=== PATIENT | female | born 1960 | race Caucasian/White ===

== ENCOUNTER 2016-04-29 18:51 | Emergency (ER) | payer BC ==
[2016-04-29 21:04] VITALS: BP 122/77
--- NOTE | 2016-04-29 21:09 | UC ---
Complaint Female HPI - HPI Summary HPI Summary: right flank pain---history of kidney stones 25 years ago--no fevers chills nausea vomiting urgency or frequency with urination - History Of Current Complaint Chief Complaint: UCGU Stated Complaint: URINARY Time Seen by Provider: 04/29/16 21:01 Hx Obtained From: Patient Hx Last Menstrual Period: 2 months ago ?: No Onset/Duration: Sudden Onset, Lasting Days - 2, Still Present Timing: Constant Severity Initially: Mild Severity Currently: Mild Pain Intensity: 5 Pain Scale Used: 0-10 Numeric Character: Colicy Aggravating Factor(s): Nothing Associated Signs And Symptoms: Positive: Back Pain - right flank. Negative: Fever, Vaginal Bleeding/Discharge, Vaginal Discharge, Nausea, Vomiting(# Of Episodes =), Genital Swelling, Genital Blisters, Retained Foregin Body (Specify) - Allergies/Home Medications Allergies/Adverse Reactions: Allergies Allergy/AdvReac Type Severity Reaction Status Date / Time Phenytoin [From Dilantin] Allergy Intermediate Hives Verified 04/29/16 20:58 Home Medications: Home Medications Multiple Vitamin [Multivitamins] 1 cap PO DAILY 04/29/16 [History Confirmed 01/03] PMH/Surg Hx/FS Hx/Imm Hx Previously Healthy: No Endocrine History Of: Denies: Diabetes, Thyroid Disease Cardiovascular History Of: Reports: Cardiac Disorders - MITRAL VALVE PROLAPSE Denies: Hypertension Respiratory History Of: Denies: COPD, Asthma GI/ History Of: Reports: Kidney Stones Denies: Ulcer - Surgical History Surgical History: Yes Surgery Procedure, Year, and Place: LIVER RESECTION 70% FOR A HEMANGIOMA. C section - Family History Known Family History: Positive: Hypertension - Social History Occupation: Employed Full-time - day care Lives: With Family Alcohol Use: Rare Substance Use Type: None Smoking Status (MU): Light Every Day Tobacco Smoker Type: Cigarettes Amount Used/How Often: 5-6 cigarettes daily Review of Systems Constitutional: Negative Skin: Negative Eyes: Negative ENT: Negative Respiratory: Negative Cardiovascular: Negative Gastrointestinal: Negative Genitourinary: Hematuria Motor: Negative Neurovascular: Negative Musculoskeletal: Negative Neurological: Negative Psychological: Negative All Other Systems Reviewed And Are Negative: Yes Physical Exam Triage Information Reviewed: Yes Appearance: Well-Appearing, No Pain Distress, Well-Nourished Vital Signs: Initial Vital Signs Temp 98.4 F 04/29/16 20:59 Pulse 70 04/29/16 20:59 Resp 18 04/29/16 20:59 BP 122/77 04/29/16 20:59 Pulse Ox 99 04/29/16 20:59 Vital Signs Reviewed: Yes Eye Exam: Normal Eyes: Positive: Conjunctiva Clear ENT Exam: Normal ENT: Positive: Normal ENT inspection, Hearing grossly normal, Pharynx normal, TMs normal. Negative: Nasal congestion, Nasal drainage, Tonsillar swelling, Tonsillar exudate, Trismus, Muffled/hoarse voice Dental Exam: Normal Neck exam: Normal Neck: Positive: Supple, Nontender, No Lymphadenopathy Respiratory Exam: Normal Respiratory: Positive: Chest non-tender, No respiratory distress, No accessory muscle use Cardiovascular Exam: Normal Cardiovascular: Positive: RRR, No Murmur, Pulses Normal, Brisk Capillary Refill Abdominal Exam: Other Abdomen Description: Positive: No Organomegaly, Soft, CVA Tenderness (R). Negative: Distended, Guarding Bowel Sounds: Positive: Present, Absent Musculoskeletal Exam: Normal Musculoskeletal: Positive: Strength Intact, ROM Intact, No Edema Neurological Exam: Normal Neurological: Positive: Alert Psychological Exam: Normal Skin Exam: Normal Diagnostics - Laboratory Diagnostic Studies Completed/Ordered: kub--no evidencee of renal stone Complaint Female Dx - Course Course Of Treatment: strain urine, bactrim, increase fluids, follow with pcp/ urology on Monday to ed for increase pain, fever, chills, nausea, vomiting decrease urine output - Differential Dx/Diagnosis Differential Diagnosis/HQI/PQRI: Renal Colic, Sexually Transmitted Disease, Ureteral Stone, Urinary Tract Infection Provider Diagnoses: Hematuria, right flank pain, uti Discharge - Discharge Plan Condition: Stable Disposition: HOME Prescriptions: Ibuprofen TAB* [Motrin TAB* 600 MG] 600 mg PO Q6H PRN #40 tab PRN Reason: pain Sulfamethox/Trimethoprim DS* [Bactrim DS 800/160 TAB*] 1 tab PO BID #19 tab Patient Education Materials: Urinary Tract Infection in Women (ED), Renal Colic (ED), Hematuria (ED) Referrals: Inocencia Rios MD [Medical Doctor] - 3 Days Gabo Chan MD [Primary Care Provider] - Víctor Sanz MD [Medical Doctor] - 3 Days ()
[2016-04-29] MEDS ORDERED: Sulfamethox/Trimethoprim DS 800/160* TAB PO ONE (21:42)
--- NOTE | 2016-04-29 22:20 | RAD ---
HISTORY: Flank pain COMPARISONS: None VIEWS: Frontal views of the abdomen. FINDINGS: BOWEL: There is a nonspecific bowel gas pattern, with nondilated small bowel gas noted. There is a large amount of stool within the colon. CALCULI: Vascular calcifications are noted in the pelvis. There are no appreciable calculi attributable to the renal collecting system, though evaluation is limited by overlying bowel BONES AND SOFT TISSUES: There are no osseous abnormalities. OTHER FINDINGS: The lung bases are clear. There is no subphrenic gas. IMPRESSION: NONOBSTRUCTIVE BOWEL GAS PATTERN. LARGE AMOUNT OF STOOL WITHIN THE COLON.
== END 2016-04-29 22:33 | disposition home or self-care (01) ==
LOC: UCCORT 18:51
DX: N39.0 Urinary tract infection, site not specified (principal); R31.9 Hematuria, unspecified; I34.1 Nonrheumatic mitral (valve) prolapse; F17.210 Nicotine dependence, cigarettes, uncomplicated; Z88.5 Allergy status to narcotic agent
CPT/HCPCS: 74000; 87086; 99212; A9270-GY; G0463

== ENCOUNTER 2016-05-06 17:47 | Emergency (ER) | payer BC ==
[2016-05-06 20:20] LABS: Urine Bacteria Absent (Absent); Urine Bilirubin Negative (Negative); Urine Glucose Negative (Negative); Urine Nitrite Negative (Negative)
--- NOTE | 2016-05-06 22:04 | ED ---
GI/ HPI - HPI Summary HPI Summary: 55 female presents with complaints of blood in urine, flank pain, urinary frequency and urgency that began ~ 1 week ago. Patient states she was seen at [facility] 1 week ago for blood in urine and was treated for a UTI with Bactrim. However, after taking 2 pills of the Bactrim patient states she was called and told to stop taking it due to the culture coming back negative for organisms on 05/01/16. Still experiencing symptoms she went to her PCP who started her on Cipro that she also took 2 pills of. Patient had an US done yesterday 05/05/16 to rule out kidney stones, as she does have a hx, and it was negative. She was told not to take her Cipro the day of her US so she stopped taking that. She took one more pill of Cipro this morning 05/06/16 for a total of 2. Her symptoms have gotten worse since. Today 05/06/16 she complains of fever of 103F, nausea, vomiting and general feeling ill along with her urinary symptoms. Denies difficulty breathing, abdominal pain and chest pain. - History of Current Complaint Chief Complaint: EDUrogenitalProblems Time Seen by Provider: 05/06/16 21:23 Stated Complaint: FEVER,BLOOD IN URINE,VOMITING Hx Obtained From: Patient Onset/Duration: Started Days Ago Timing: Constant Severity: Mild Current Severity: Moderate Pain Intensity: 1 Location of Pain: Flank - right Pain Characteristics: Aching Associated Signs and Symptoms: Positive: Nausea, Vomiting, Fever, Hematuria, Dysuria, Chills, Other: - "feeling ill" Aggravating Factor(s): Urination Alleviating Factor(s): Nothing - Allergy/Home Medications Allergies/Adverse Reactions: Allergies Allergy/AdvReac Type Severity Reaction Status Date / Time Phenytoin [From Dilantin] Allergy Intermediate Hives Verified 04/29/16 20:58 PMH/Surg Hx/FS Hx/Imm Hx Endocrine/Hematology History: Denies: Hx Diabetes, Hx Thyroid Disease Cardiovascular History: Denies: Hx Hypertension Respiratory History: Denies: Hx Asthma, Hx Chronic Obstructive Pulmonary Disease (COPD) GI History: Denies: Hx Ulcer History: Reports: Hx Kidney Stones - Surgical History Surgery Procedure, Year, and Place: LIVER RESECTION 70% FOR A HEMANGIOMA. C section Infectious Disease History: No Infectious Disease History: Denies: Hx Hepatitis, Hx Human Immunodeficiency Virus (HIV), Traveled Outside the [place] in Last 30 Days - Family History Known Family History: Positive: Hypertension - Social History Alcohol Use: Rare Substance Use Type: Reports: None Smoking Status (MU): Light Every Day Tobacco Smoker Type: Cigarettes Amount Used/How Often: 5-6 cigarettes daily Review of Systems Positive: Fever, Chills, Fatigue Eyes: Negative ENT: Negative Cardiovascular: Negative Respiratory: Negative Positive: Vomiting, Nausea Positive: burning, dysuria, flank pain, hematuria, urgency Musculoskeletal: Negative Skin: Negative Neurological: Negative Psychological: Normal All Other Systems Reviewed And Are Negative: Yes Physical Exam Triage Information Reviewed: Yes Vital Signs On Initial Exam: Initial Vitals Temp Pulse Resp BP Pulse Ox 97.6 F 83 18 122/83 99 05/06/16 18:16 05/06/16 18:16 05/06/16 18:16 05/06/16 18:16 05/06/16 18:16 Vital Signs Reviewed: Yes Appearance: Positive: No Pain Distress, Well-Nourished, Ill-Appearing Skin: Positive: Warm, Skin Color Reflects Adequate Perfusion, Dry Head/Face: Positive: Normal Head/Face Inspection Eyes: Positive: Normal, Conjunctiva Clear ENT: Positive: Hearing grossly normal Neck: Positive: Supple, Nontender, No Lymphadenopathy Respiratory/Lung Sounds: Positive: Clear to Auscultation, Breath Sounds Present Cardiovascular: Positive: Normal, RRR, Pulses are Symmetrical in both Upper and Lower Extremities Abdomen Description: Positive: Nontender, No Organomegaly, Soft, CVA Tenderness (R). Negative: Bruit, CVA Tenderness (L), Distended, Guarding, Peritoneal Signs Bowel Sounds: Positive: Present Musculoskeletal: Positive: Normal, Strength/ROM Intact Neurological: Positive: Normal, Sensory/Motor Intact, Alert, Oriented to Person Place, Time Psychiatric: Positive: Normal Diagnostics - Vital Signs Vital Signs Temp Pulse Resp BP Pulse Ox 05/06/16 20:30 97.8 F 78 16 114/84 98 05/06/16 19:40 97.9 F 74 16 123/72 98 05/06/16 18:16 97.6 F 83 18 122/83 99 - Laboratory Lab Results: Lab Results 05/06/16 Range/Units 20:00 Urine Color Franny Urine Appearance Cloudy Urine pH 6.0 (5-9) Ur Specific [place] 1.030 (1.010-1.030) Urine Protein 2+(100 mg/dl) H (Negative) Urine Ketones Trace H (Negative) Urine Blood 3+ H (Negative) Urine Nitrate Negative (Negative) Urine Bilirubin Negative (Negative) Urine Urobilinogen Negative (Negative) Ur Leukocyte Esterase 1+ H (Negative) Urine WBC (Auto) 2+(11-20/hpf) H (Absent) Urine RBC (Auto) 3+(>10/hpf) H (Absent) Ur Squamous Epith Cells Present H (Absent) Urine Bacteria Absent (Absent) Urine Glucose Negative (Negative) Result Diagrams: 05/06/16 22:50 05/06/16 22:50 Lab Statement: Any lab studies that have been ordered have been reviewed, and results considered in the medical decision making process. - CT No standard instances CT Interpretation: Positive (See Comments) - BILATERAL, NONOBSTRUCTIVE RENAL CALCULI. THE DOMINANT CALCULUS IS AT THE LEVEL OF THE LEFT UPJ AND MEASURES [address] Interpretation Completed By: Radiologist Re-Evaluation - Re-Evaluation First Eval Re-Evaluation Time: 23:42 Change: Unchanged - patient is still doing ok. comfortable and declining pain management at this time. GIGU Course/Dx - Course Course Of Treatment: CT of abdomen/pelvis was ordered to rule out calculi smaller that U/S may not have picked up and negative for hydronephrosis. Due to negative urine culture a few days ago and history of kidney stones other etiologies were considered. Urinalysis positive for blood, leukocyte, WBC, RBC, ketones and protein. Given fluids, denied pain medication at this time. CT positive for b/l kidney stones without complication however one sone meausring 6mm in UPJ obstructed and possibly infected due to febrile illness and vomiting. patient is not febrile at this time however did get a temperature of 100.3F at home before taking some ibuprofen. Spoke with Dr Otto and Dr Becker. Patient will be treated with IV Rocephin and per Dr Becker she will be seen in his office Monday. He also asked to get a KUB to have a better idea of kidney stone placement, which was obtained. Patient is aware of worsening symptoms to watch out for understands she should return to ED with worsening symptoms or increased pain over the weekend. Encouraged to take at home Ibuprofen 600mg for pain. Patient refused any other pain medication as she does not like taking it. - Diagnoses Differential Diagnoses - Female: Cystitis, Pyelonephritis, Renal Calculi, Urinary Tract Infection, Ureteral Calculi Provider Diagnoses: Renal calculus, bilateral, UPJ (ureteropelvic junction) obstruction - Physician Notifications Discussed Care Of Patient With: Dr Otto and Dr Becker Time Discussed With Above Provider: 23:15 Instructed by Provider To: Have Pt Call For Appt. - seen in his office monday Discharge - Discharge Plan Condition: Stable Disposition: HOME Patient Education Materials: Kidney Stones (ED) Referrals: Gabo Chan MD [Primary Care Provider] - Regino Becker MD [Medical Doctor] - Additional Instructions: Take Ibuprofen as needed to help with your pain. Drink PLENTY of fluids. Rest. Follow-up with Dr Becker/Urology office is critical by Monday of next week for further evaluation of the stone and additional intervention. If symptoms worsen such as increasing fever, vomiting and intense pain please return to ED in the meantime for management.
[2016-05-06] MEDS ORDERED: NS 0.9% 1000 ML* 1,000 ML IV ONE (22:09)
--- NOTE | 2016-05-06 22:42 | RAD ---
INDICATION: Flank pain and hematuria COMPARISON: None TECHNIQUE: Noncontrast axial source images were acquired from the level hemidiaphragms to the symphysis pubis as part of CT imaging for renal stone. Lung bases: The lung bases are clear. Liver: There is partial hepatic resection. The left lobe appears absent. Noncontrast imaging shows no evidence of a hepatic mass or ductal dilatation. Gallbladder: Cholecystectomy. Spleen: The spleen is normal in size. The noncontrast CT appearance is normal. Pancreas: Noncontrast imaging shows no pancreatic mass or ductal dilitation. Adrenal glands: No masses are identified. Kidneys/Bladder: There are several 2 to 3 mm nonobstructive calculi in the lower pole the right kidney. There are no right ureteral calculi. There is a nonobstructive, 6 mm calculus at the level of the left UPJ. There is a obstructive, 3 mm lower pole left renal calculus. There are no left ureteral calculi. There are multiple phleboliths in the minor pelvis no renal mass is identified on noncontrast evaluation. Adenopathy: There is no evidence of intraperitoneal or retroperitoneal adenopathy. Evaluation is limited without oral contrast. Fluid collections: There are no free or localized fluid collections. Vessels: The aorta and iliac vessels are normal in caliber. There are no significant atherosclerotic changes. The IVC appears normal Pelvic organs: The uterus and adnexa appear normal GI tract: Evaluation of the bowel is limited without oral contrast. The stomach, small bowel, and lower GI tract appear grossly normal. There are no obstructive findings. The appendix is visualized and appears normal. Soft tissues: No soft tissue abnormalities of the extraperitoneal abdomen or pelvis are identified. Osseous structures: There are no acute osseous findings. IMPRESSION: BILATERAL, NONOBSTRUCTIVE RENAL CALCULI. THE DOMINANT CALCULUS IS AT THE LEVEL OF THE LEFT UPJ AND MEASURES 6 MM
[2016-05-06 22:58] LABS: Hematocrit 39 % (35-47); Hemoglobin 13.1 g/dl (12.0-16.0); Mean Corpuscular HGB Conc 33 g/dl (31-36); Mean Corpuscular Hemoglobin 29 pg (27-31); Mean Corpuscular Volume 88 fL (80-97); Mean Platelet Volume 8 um3 (7.4-10.4); Red Blood Count 4.47 10^6/ul (4.0-5.4); Red Cell Distribution Width 14 % (10.5-15); White Blood Count 7.1 10^3/ul (3.5-10.8)
[2016-05-06] MEDS ORDERED: cefTRIAXone(*) 1 GM in NS 0.9% 50 ML* 50 ML IVPB ONE (23:13)
[2016-05-06 23:41] LABS: Albumin 3.8 g/dL (3.2-5.2); C Reactive Protein 24.97 mg/L (< 5.00); EGFR African American 84.4 (>60); EGFR Non-African American 65.6 (>60); Globulin 2.9 g/dL (2-4); Potassium 3.8 mmol/L (3.5-5.0); Total Bilirubin 0.7 mg/dL (0.2-1.0); Total Protein 6.7 g/dL (6.4-8.9)
[2016-05-07 01:35] VITALS: BP 112/72
--- NOTE | 2016-05-07 08:05 | RAD ---
HISTORY: Kidney stone COMPARISONS: CT dated May 06, 2016 VIEWS: Frontal views of the abdomen. FINDINGS: BOWEL: There is a nonspecific bowel gas pattern, with nondilated small bowel gas noted. There is a large amount of stool within the colon. CALCULI: The renal calculi noted on the previous CT examination is not well-visualized on the current examination; however, evaluation is limited by overlying bowel. BONES AND SOFT TISSUES: Mild degenerative changes are noted OTHER FINDINGS: The lung bases are clear. There is no subphrenic gas. IMPRESSION: THE NEPHROLITHIASIS NOTED ON THE PREVIOUS CT EXAMINATION IS NOT WELL-VISUALIZED ON THE CURRENT EXAMINATION; HOWEVER, EVALUATION IS LIMITED BY OVERLYING BOWEL
== END 2016-05-07 01:32 | disposition home or self-care (01) ==
LOC: ED 17:47
DX: N20.0 Calculus of kidney (principal); N13.5 Crossing vessel and stricture of ureter without hydronephrosis; R11.2 Nausea with vomiting, unspecified; R50.9 Fever, unspecified; R31.9 Hematuria, unspecified; R30.0 Dysuria; F17.210 Nicotine dependence, cigarettes, uncomplicated
CPT/HCPCS: 36415; 74000; 74176; 80053; 81003; 81015; 85025; 86140; 87086; 99282; J0696

== ENCOUNTER 2016-05-30 08:15 | Day surgery (SDC) | payer BC ==
--- NOTE | 2016-05-11 10:26 | HP ---
ADMITTING HISTORY AND PHYSICAL: DATE OF ADMISSION: 05/16/16 AGE: 55 years. SEX: Female. SURGEON: Regino Becker MD ADMITTING DIAGNOSES: 1. Left flank pain. 2. Calculus, left ureteropelvic junction. PLANNED PROCEDURES: Shock wave lithotripsy of left renal calculus. ADMITTING HISTORY OF PRESENT ILLNESS: Patricia Santoyo is a 55-year-old lady who had episodic flank pain and presented to the emergency room. A CT scan revealed a 6 to 7 mm calculus at the left ureteropelvic junction without any hydronephrosis. She continues to have intermittent pain and is being brought in for shock wave lithotripsy for treatment of the calculus. Since there is no hydronephrosis, I am not planning to place a stent at the time of lithotripsy. PAST MEDICAL HISTORY: Significant for gastroesophageal reflux and a large hepatic hemangioma requiring resection of 70% of the liver in 2000. PAST SURGICAL HISTORY: Significant for partial hepatectomy in 2000 and C- section. MEDICATIONS: On admission: 1. Rabeprazole 20 mg twice a day. 2. Multivitamin. ALLERGIES: DILANTIN and HIBICLENS. SMOKING HISTORY: She has a 10-15 pack year smoking history. FAMILY HISTORY: Her father has kidney stones. PHYSICAL EXAMINATION GENERAL: Reveals a pleasant middle-aged lady, who is currently not in any acute pain. VITAL SIGNS: Blood pressure is 128/84; and pulse 68 per minute, oxygen saturation 97% on room air. LUNGS: Clear bilaterally. CARDIOVASCULAR EXAM: Regular rate and rhythm. S1, S2. ABDOMEN: Soft with mild left flank tenderness. IMPRESSION AND PLAN: A 55-year-old lady with a nonobstructing 6 mm to 7 mm calculus of the left ureteropelvic junction. I have discussed the procedure of shock wave lithotripsy including possible risks of bleeding, infection, incomplete fragmentation, and she appears to understand and wishes to proceed as planned. I have also discussed alternative option of waiting to see whether the stone were migrate distally into the ureter but she would like to avoid having to deal with obstruction and potential stents and would like to proceed with the lithotripsy instead. CC: Gabo Chan MD; Dr. Becker* [id number]/[facility] #: [id number] [facility]
[~2016-05-30 08:15] MED LIST: Buffered Lidocaine 1% SYR 3ML* 3 ML/SYR SYRINGE INTRADERM ONE; Famotidine IV* 10 MG/ML 2 ML (20 mg) IV ONE; Metoclopramide TAB* 10 MG PO ONE
[2016-05-30] MEDS ORDERED: Metoclopramide TAB* 10 MG ONE (08:22)
[2016-05-30] MEDS ORDERED: Levofloxacin 500 MG IVPREMIX(* 500 MG/100 ML BAG IVPB ONE (08:22)
[2016-05-30] MEDS ORDERED: Famotidine IV* 10 MG/ML 2 ML (20 mg) ONE (08:22)
--- NOTE | 2016-05-30 08:52 | RAD ---
Indication: Lithotripsy. Left renal calculus. Single view of the abdomen demonstrates calculi overlying the lower pole left kidney. This measures approximately 6 mm. When compared to previous exam of May 10, 2016 this appears more conspicuous. IMPRESSION: Calcification overlying the lower pole of left kidney measuring up to 6 mm.
[2016-05-30] MEDS ORDERED: Dexamethasone IV* 4 MG/ML 1 ML (4 MG) ONE (09:29)
[2016-05-30] MEDS ORDERED: fentaNYL* 50 MCG/ML 2 ML VIAL (100 MCG VIAL) ONE ×2 (09:29→11:27)
[2016-05-30] MEDS ORDERED: Lidocaine 2% PF * 5 ML VIAL ONE (09:29)
[2016-05-30] MEDS ORDERED: Midazolam* 1 MG/ML 5 ML VIAL (5 MG) ONE (09:29)
[2016-05-30] MEDS ORDERED: Propofol* 10 MG/ML 20 ML BTL IV PUSH ONE ×2 (09:29→11:15)
[2016-05-30] MEDS ORDERED: Ketorolac INJ* 30 MG/ML 1 ML VIAL ONE (09:29)
[2016-05-30] MEDS ORDERED: Ondansetron INJ* 2 MG/ML VIAL ONE (09:29)
[2016-05-30] MEDS ORDERED: KETAMINE HCL* 50 MG/ML 10 ML VIAL ONE (09:29)
[2016-05-30] MEDS ORDERED: Ondansetron INJ* 2 MG/ML VIAL IV PRN (10:55)
[2016-05-30] MEDS ORDERED: fentaNYL* 50 MCG/ML 2 ML VIAL (100 MCG VIAL) IV PRN (10:55)
[2016-05-30] MEDS ORDERED: oxyCODONE/Acetamin 5/325 MG* TAB PO PRN (10:55)
[2016-05-30] MEDS ORDERED: HYDROmorphone INJ* 1 MG/ML CARPUJECT SYRINGE IV PRN (10:55)
[2016-05-30 12:46] VITALS: BP 123/73
--- NOTE | 2016-05-31 03:22 | OP ---
DATE OF OPERATION: 05/30/16 - [facility] DATE OF : 58 - AGE/SEX: 55 years, female. SURGEON: Regino Becker MD ANESTHESIOLOGIST: Dr. Mikie Otero. ANESTHESIA: Intravenous sedation. PRE-OP DIAGNOSIS: Left renal calculus. POST-OP DIAGNOSIS: Left renal calculus. OPERATIVE PROCEDURE: Shockwave lithotripsy of left renal calculus. COMPLICATIONS: None. POSTOPERATIVE CONDITION: Stable. INDICATIONS: Patricia Santoyo is a 55-year-old lady who has had episodic left flank pain secondary to a left renal calculus. I have discussed the procedure of lithotripsy including possible risks of bleeding, infection, incomplete fragmentation, and possible injury to the kidney. She appears to understand and wishes to proceed as planned with the lithotripsy. DESCRIPTION OF PROCEDURE: After induction of intravenous sedation, the patient was placed on the lithotripsy table in a supine position. The calculus, which now appeared to be in the lower pole of the kidney (had been in the area of the renal pelvis earlier) was localized using fluoroscopy and shockwave lithotripsy was commenced. After the initial 300 shocks, there was a pause in lithotripsy for several minutes in an effort to minimize any potential trauma to the kidney. Lithotripsy was then resumed and a total of 2400 shocks were administered. The patient tolerated the procedure satisfactorily, and was transferred back to the recovery area in stable condition. [id number]/[facility] #: [id number] MTDD
== END 2016-05-30 13:10 | disposition home or self-care (01) ==
LOC: OR 08:15
PROVIDERS: ATTEND Urology
DX: N20.0 Calculus of kidney (principal); I34.1 Nonrheumatic mitral (valve) prolapse; R00.0 Tachycardia, unspecified; R55 Syncope and collapse
CPT/HCPCS: 74000; A9270-GY; J1100; J1885; J1956; J2250; J2405; J2704; J3010

== ENCOUNTER 2016-07-20 10:02 | Day surgery (SDC) | payer BC ==
[2016-07-20] MEDS ORDERED: fentaNYL* 50 MCG/ML 2 ML VIAL (100 MCG VIAL) ONE ×2 (11:38→13:21)
[2016-07-20] MEDS ORDERED: Midazolam* 1 MG/ML 5 ML VIAL (5 MG) ONE (11:38)
[2016-07-20] MEDS ORDERED: cefTRIAXone(*) 2 GM ADDV.VIAL IVPB ONE (12:50)
[2016-07-20] MEDS ORDERED: Levofloxacin 500 MG IVPREMIX(* 500 MG/100 ML BAG IVPB ONE (12:55)
[2016-07-20] MEDS ORDERED: Iohexol 180 (CONTRAST) 10 ML SDV IV ONE (13:03)
[2016-07-20] MEDS ORDERED: Ketorolac INJ* 30 MG/ML 1 ML VIAL ONE (13:13)
[2016-07-20] MEDS ORDERED: Propofol* 10 MG/ML 20 ML BTL IV PUSH ONE (13:13)
[2016-07-20] MEDS ORDERED: Ondansetron INJ* 2 MG/ML VIAL ONE (13:13)
[2016-07-20] MEDS ORDERED: Dexamethasone IV* 4 MG/ML 1 ML (4 MG) ONE (13:13)
[2016-07-20] MEDS ORDERED: Lidocaine 2% PF * 5 ML VIAL ONE (13:13)
[2016-07-20] MEDS ORDERED: DiMENhydriNATE IV* 50 MG/ML VIAL ONE (13:13)
[2016-07-20] MEDS ORDERED: HYDROmorphone* 1 MG/ML 1 ML SYR IV PRN (14:00)
[2016-07-20] MEDS ORDERED: oxyCODONE TAB* 5 MG TAB PO PRN (14:00)
[2016-07-20] MEDS ORDERED: DiMENhydriNATE IV* 50 MG/ML VIAL IV PUSH PRN (14:00)
[2016-07-20] MEDS ORDERED: Acetaminophen TAB* 325 MG PO PRN (14:00)
--- NOTE | 2016-07-20 14:16 | RAD ---
INDICATION: Left stent insertion. COMPARISON: Correlation is made with a prior CT of the abdomen and pelvis from May 06, 2016 and a prior KUB series from June 09, 2016. TECHNIQUE: 14 seconds of intermittent fluoroscopic guidance were provided and 7 spot films of the abdomen were centered on the left side. FINDINGS: There is partial opacification of the left renal collecting system. Subsequently there is placement of a double-J stent catheter on the left side which demonstrates normal course. IMPRESSION: INTRAOPERATIVE CONTROL FILMS. CPT II Codes: 6045F
[2016-07-20] MEDS ORDERED: CMC:Solifenacin(NF) 5 MG TAB PO ONE (15:00)
[2016-07-20 15:51] VITALS: BP 125/69
--- NOTE | 2016-07-20 16:17 | RAD ---
INDICATION: Status post stent insertion left side. COMPARISON: Comparison is made to prior CT of the abdomen and pelvis from May 06, 2016 and a prior KUB series from June 09, 2016. TECHNIQUE: Frontal supine films of the abdomen were obtained. FINDINGS: The small bowel and colon appear nondistended. There are multiple surgical clips in the right upper quadrant most consistent with a prior cholecystectomy. There is a double-J stent catheter present on the left side which demonstrates normal course. There are several calcific densities which project over the left kidney most consistent with calculi. IMPRESSION: LEFT RENAL CALCULI, STATUS POST DOUBLE-J STENT CATHETER PLACEMENT.
--- NOTE | 2016-07-20 22:39 | OP ---
DATE OF OPERATION: 07/20/16 - [facility] DATE OF : 58 - AGE: 55 years, Female. SURGEON: Regino Becker MD ANESTHESIOLOGIST: Helene uGy MD ANESTHESIA: General. PRE-OP DIAGNOSES: 1. Left hydronephrosis. 2. Obstructing calculus, left proximal ureter. POST-OP DIAGNOSES: 1. Left hydronephrosis. 2. Obstructing calculus, left proximal ureter. 3. Stricture, left ureter. OPERATIVE PROCEDURE: Cystoscopy, left retrograde pyelogram, left ureteral dilatation, left ureteroscopy, and left stent insertion. COMPLICATIONS: None. STENT USED: 7-Danish stent, left ureter. OPERATIVE FINDINGS: 1. Obstructing calculus, left proximal ureter causing left hydronephrosis. 2. Very narrow left mid and distal left ureter (probably congenital narrowing less likely acquired stricture). POSTOPERATIVE CONDITION: Stable. INDICATIONS: Patricia Santoyo is a 55-year-old lady who had undergone lithotripsy of calculus in the left renal pelvis. She had not undergone any stent insertion at that time and now presented with increasing left flank pain and nausea and was noted to have an obstructing calculus in the left proximal ureter. DESCRIPTION OF PROCEDURE: After induction of general anesthesia, the patient was placed in dorsal lithotomy position. Sequential compression devices were in place and functioning. Initial cystoscopy revealed normally located right and left ureteral orifices. There was clear efflux noted from the right orifice and no efflux noted from the left orifice suggesting a complete obstruction. A guidewire was introduced into the left ureter. Retrograde pyelogram revealed left hydronephrosis. A 5-Danish open-ended catheter was introduced for the retrograde pyelogram and was fairly snug, suggesting a narrow ureter. A 6-Danish semi-rigid ureteroscope was introduced and carefully advanced into the distal ureter. The entire ureter was very narrow and I did not want to with forcing the ureteroscope and causing any trauma to the ureter. The ureter was carefully dilated with an 8- Danish dilating catheter and once this was done, a 7-Danish stent was introduced and positioned under fluoroscopy with good proximal and distal positioning obtained. The plan is to repeat an x- ray after the procedure and then to bring her back either for shock wave lithotripsy or for laser lithotripsy depending on the x- ray findings. The patient tolerated the procedure satisfactorily and was transferred back to the recovery area in stable condition. [id number]/[facility] #: [id number] MELANY
== END 2016-07-20 15:51 | disposition home or self-care (01) ==
LOC: OR 10:02
PROVIDERS: ATTEND Urology
DX: N13.2 Hydronephrosis with renal and ureteral calculous obstruction (principal); Q62.10 Congenital occlusion of ureter, unspecified; Z72.0 Tobacco use; I34.1 Nonrheumatic mitral (valve) prolapse; R00.0 Tachycardia, unspecified
CPT/HCPCS: 74000; 74420; C1876; J0696; J1100; J1240; J1580; J1885; J1956; J2250; J2405; J2704; J3010

== ENCOUNTER 2016-10-07 16:46 | Observation (INO) | payer BC ==
[2016-10-07] MEDS ORDERED: Ondansetron INJ* 2 MG/ML VIAL IV ONE (16:52)
[2016-10-07] MEDS ORDERED: Ketorolac INJ* 30 MG/ML 1 ML VIAL IV PUSH ONE (16:52)
[2016-10-07] MEDS ORDERED: NS 0.9% 1000 ML* 1,000 ML IV ONE (16:53)
[2016-10-07 20:02] LABS: Hematocrit 38 % (35-47); Hemoglobin 12.6 g/dl (12.0-16.0); Mean Corpuscular HGB Conc 33 g/dl (31-36); Mean Corpuscular Hemoglobin 30 pg (27-31); Mean Corpuscular Volume 91 fL (80-97); Mean Platelet Volume 8 um3 (7.4-10.4); Red Blood Count 4.23 10^6/ul (4.0-5.4); Red Cell Distribution Width 15 % (10.5-15); White Blood Count 12.1 10^3/ul (3.5-10.8)
--- NOTE | 2016-10-07 20:15 | ED ---
Americo Shook Rebecca, scribed for Patrice Staton MD on 10/07/16 at 1937 . Abdominal Pain/Female - HPI Summary HPI Summary: Pt is a 56 y/o F BIBA who presents to ED c/o L flank pain and nausea. Nausea had been present all day with flank pain beginning at 1300. Pain was in the L flank with radiation to the groin and characterized as burning. Currently, pain is ranked 0/10, though previously it was 10/10. Sx aggravated by nothing, alleviated by Toradol. No sx are present currently. PMHx kidney stones with PSHx "3 surgeries for kidney stones since May" with the last one being a stent removal and lithotripsy in July. - History of Current Complaint Chief Complaint: EDFlankPain Stated Complaint: ABD PAIN Time Seen by Provider: 10/07/16 19:29 Hx Obtained From: Patient Hx Last Menstrual Period: 2 months ago Onset/Duration: Lasting Hours, Resolved Timing: Constant Severity Initially: Severe - 10/10 Severity Currently: None Pain Intensity: 0 Pain Scale Used: 0-10 Numeric Location: Flank - L Radiates: Yes Radiates to: Inguinal Character: Burning Aggravating Factor(s): Nothing Alleviating Factor(s): Medications - Toradol Associated Signs and Symptoms: Positive: Nausea Allergies/Adverse Reactions: Allergies Allergy/AdvReac Type Severity Reaction Status Date / Time Chlorhexidine Allergy Intermediate Swelling Verified 07/25/16 11:31 [From Hibiclens] Phenytoin [From Dilantin] Allergy Intermediate Hives Verified 07/25/16 11:31 Ceftriaxone [From Rocephin] Allergy Hives Verified 07/25/16 11:31 PMH/Surg Hx/FS Hx/Imm Hx Endocrine/Hematology History: Denies: Hx Diabetes, Hx Thyroid Disease Cardiovascular History: Reports: Hx Valvular Heart Disease - MVP Denies: Hx Hypertension, Hx Pacemaker/ICD Respiratory History: Denies: Hx Asthma, Hx Chronic Obstructive Pulmonary Disease (COPD) GI History: Reports: Hx Gastroesophageal Reflux Disease - ON MEDICATION FOR, Other GI Disorders - LIVER RESECTION-2000- FOR HEMANGIOMA Denies: Hx Ulcer History: Reports: Hx Kidney Stones - HX OF AND CURRENTLY Sensory History: Reports: Hx Contacts or Glasses - GLASSES Denies: Hx Hearing Aid Opthamlomology History: Reports: Hx Contacts or Glasses - GLASSES Neurological History: Reports: Hx Headaches - OCCASIONAL- TX WITH IBUPROFEN OR TYLENOL, Hx Migraine - OCCASIONAL- TX WITH IBUPROFEN OR TYLENOL, Hx Seizures - EPILEPSY A CHILD- NO SEIZURE SINCE AGE 15 - Surgical History Surgery Procedure, Year, and Place: LIVER RESECTION 70% FOR A HEMANGIOMA with gall bladder removal 2000. C section 1986. left hand surgery 1997. LITHOTRIPSY. LEFT URETERAL STENT INSERTION- -2016 Hx Anesthesia Reactions: No Infectious Disease History: No Infectious Disease History: Denies: Hx Hepatitis, Hx Human Immunodeficiency Virus (HIV), Traveled Outside the [place] in Last 30 Days - Family History Known Family History: Positive: Hypertension - Social History Alcohol Use: None Substance Use Type: Reports: None Smoking Status (MU): Light Every Day Tobacco Smoker Type: Cigarettes Amount Used/How Often: 1/2 PPD X 1 YEAR Have You Smoked in the Last Year: Yes Review of Systems Positive: Nausea - Resolved Positive: flank pain - L flank with radiation to the groin - resolved All Other Systems Reviewed And Are Negative: Yes Physical Exam Triage Information Reviewed: Yes Vital Signs On Initial Exam: Initial Vitals Temp Pulse Resp BP Pulse Ox 97.2 F 71 20 159/77 97 10/07/16 17:33 10/07/16 17:33 10/07/16 17:33 10/07/16 17:33 10/07/16 17:33 Vital Signs Reviewed: Yes Appearance: Positive: Well-Appearing, Pain Distress - mild discomfort Skin: Positive: Warm Head/Face: Positive: Normal Head/Face Inspection Eyes: Positive: JOSÉ MIGUEL ENT: Positive: Hearing grossly normal Neck: Positive: Supple Respiratory/Lung Sounds: Positive: Clear to Auscultation, Breath Sounds Present Cardiovascular: Positive: RRR Abdomen Description: Positive: Nontender, Soft. Negative: CVA Tenderness (R), CVA Tenderness (L) Bowel Sounds: Positive: Present Musculoskeletal: Positive: Strength/ROM Intact Neurological: Positive: Alert, Oriented to Person Place, Time Psychiatric: Positive: Affect/Mood Appropriate - [place] Coma Scale Coma Scale Total: 15 Diagnostics - Vital Signs Vital Signs Temp Pulse Resp BP Pulse Ox 10/07/16 17:33 97.2 F 71 20 159/77 97 - Laboratory Lab Results: Lab Results 10/07/16 Range/Units 19:50 WBC 12.1 H (3.5-10.8) 10^3/ul RBC 4.23 (4.0-5.4) 10^6/ul Hgb 12.6 (12.0-16.0) g/dl Hct 38 (35-47) % MCV 91 (80-97) fL MCH 30 (27-31) pg MCHC 33 (31-36) g/dl RDW 15 (10.5-15) % Plt Count 247 (150-450) 10^3/ul MPV 8 (7.4-10.4) um3 Neut % (Auto) 85.4 H (38-83) % Lymph % (Auto) 8.7 L (25-47) % Pacific % (Auto) 5.5 (1-9) % Eos % (Auto) 0 (0-6) % Baso % (Auto) 0.4 (0-2) % Absolute Neuts (auto) 10.4 H (1.5-7.7) 10^3/ul Absolute Lymphs (auto) 1.1 (1.0-4.8) 10^3/ul Absolute Monos (auto) 0.7 (0-0.8) 10^3/ul Absolute Eos (auto) 0 (0-0.6) 10^3/ul Absolute Basos (auto) 0 (0-0.2) 10^3/ul Absolute Nucleated RBC 0.01 10^3/ul Nucleated RBC % 0 Result Diagrams: 10/07/16 19:50 10/07/16 19:50 Lab Statement: Any lab studies that have been ordered have been reviewed, and results considered in the medical decision making process. - CT CT Abd/Pel CT Interpretation: Positive (See Comments) CT Interpretation Completed By: Radiologist Re-Evaluation - Re-Evaluation First Eval Re-Evaluation Time: 20:35 Change: Worse Comment: Pain is slightly returning Abdominal Pain Fem Course/Dx - Course Course Of Treatment: Pt is a 56 y/o F BIBA who presents to ED c/o L flank pain and nausea. Nausea had been present all day with flank pain beginning at 1300. Pain was severe L flank pain with radiation to the groin and characterized as burning, though it is now resolved. Sx alleviated by Toradol. No sx are present currently. PMHx kidney stones with PSHx "3 surgeries for kidney stones since May" with the last one being a stent removal and lithotripsy in July. CT Abd/ Pel reveals "1. BILATERAL NEPHROLITHIASIS, INCLUDING A 0.8 CM DISTAL URETERAL CALCULUS ON THE LEFT WITH LEFT-SIDED HYDRONEPHROSIS. 2. FAT-CONTAINING VENTRAL AND UMBILICAL HERNIAS" Discussed care of pt with Dr. Sanz who will see the pt in the ED. Discussed care of pt with Dr. Sanz again, inquiring when the last time she ate was as he will be taking her to the OR. She will be admitted to [facility] with a Dx of renal colic. She understands and agrees. - Diagnoses Provider Diagnoses: Renal colic - Provider Notifications Discussed Care Of Patient With: Víctor Sanz Time Discussed With Above Provider: 20:40 Instructed by Provider To: Admit As Inpatient - Discussed care of pt with Dr. Sanz again at 2043, inquiring when the last time she ate was as he will be taking her to the OR. Discharge - Discharge Plan Condition: Good Disposition: ADMITTED TO [facility] The documentation as recorded by the Americo reyes Rebecca accurately reflects the service I personally performed and the decisions made by me, Patrice Staton MD.
--- NOTE | 2016-10-07 20:17 | RAD ---
CLINICAL HISTORY: Left flank pain COMPARISON: May 06, 2016 TECHNIQUE: Multiple contiguous axial CT scans were obtained of the abdomen and pelvis, without intravenous contrast enhancement. Coronal and sagittal multiplanar reformations are submitted for review. Oral contrast was not administered. FINDINGS: The study is limited by the lack of intravenous contrast. This limits evaluation of the solid organs and vasculature. LUNG BASES: The lung bases are clear. LIVER: The patient appears to be status post resection of the left lobe of the liver BILE DUCTS: There is no intrahepatic or extrahepatic biliary dilatation. GALLBLADDER: The gallbladder is not clearly visualized. PANCREAS: The pancreas is normal, without mass or ductal dilatation. SPLEEN: Normal in size and appearance. UPPER GI TRACT: Evaluation of the gastrointestinal tract is limited by incomplete gastric distention. The upper GI tract is unremarkable. SMALL BOWEL AND MESENTERY: The small bowel is normal in contour, course, and caliber. There is no obstruction or dilatation. COLON: The colon is normal in contour, course, caliber. There is no pericolonic inflammatory change. There is a tubular, vermiform, hollow viscus that is blind ending, and originates from the cecum, consistent with a normal appendix. There is no periappendiceal inflammatory change. This is best seen on axial images 111 through 124. ADRENALS: Normal bilaterally. KIDNEYS: There is a 0.4 cm calyceal stone of the lower pole of left kidney. There are punctate right renal calyceal stones. There is a 0.8 cm calculus of the distal third of the left ureter, just proximal to the left UVJ. There is moderate pelvocaliectasis and hydroureter on the left. BLADDER: The bladder is smooth in contour. PELVIC ORGANS: The uterus and adnexa are grossly normal for technique. AORTA: The aorta is normal. IVC: Unremarkable LYMPH NODES: There is no lymphadenopathy by size criteria. ABDOMINAL WALL: There is a fat-containing supraumbilical ventral hernia. There is a small fat-containing umbilical hernia. BONES AND SOFT TISSUES: Degenerative changes are noted OTHER: None IMPRESSION: 1. BILATERAL NEPHROLITHIASIS, INCLUDING A 0.8 CM DISTAL URETERAL CALCULUS ON THE LEFT WITH LEFT-SIDED HYDRONEPHROSIS. 2. FAT-CONTAINING VENTRAL AND UMBILICAL HERNIAS
[2016-10-07 20:20] LABS: Albumin 3.4 g/dL (3.2-5.2); BUN/Creatinine Ratio 19.4 (8-20); Calcium 8.2 mg/dL (8.6-10.3); EGFR African American 79.9 (>60); EGFR Non-African American 62.1 (>60); Globulin 2.8 g/dL (2-4); Total Bilirubin 0.4 mg/dL (0.2-1.0); Total Protein 6.2 g/dL (6.4-8.9)
[2016-10-07 20:21] LABS: Urine Bacteria Absent (Absent); Urine Bilirubin Negative (Negative); Urine Glucose Negative (Negative); Urine Nitrite Negative (Negative)
[2016-10-07] MEDS ORDERED: Midazolam* 1 MG/ML 5 ML VIAL (5 MG) ONE (21:05)
[2016-10-07] MEDS ORDERED: fentaNYL* 50 MCG/ML 2 ML VIAL (100 MCG VIAL) ONE ×2 (21:05→22:32)
[2016-10-07] MEDS ORDERED: KETAMINE HCL* 50 MG/ML 10 ML VIAL ONE (21:05)
[2016-10-07] MEDS ORDERED: Iohexol 180 (CONTRAST) 10 ML SDV IV ONE (21:25)
[2016-10-07] MEDS ORDERED: Levofloxacin 500 MG IVPREMIX(* 500 MG/100 ML BAG IVPB ONE (22:11)
[2016-10-07] MEDS ORDERED: Dexamethasone IV* 4 MG/ML 1 ML (4 MG) ONE (23:21)
[2016-10-07] MEDS ORDERED: Succinylcholine* 20 MG/ML 10 ML VIAL ONE (23:21)
[2016-10-07] MEDS ORDERED: Lidocaine 2% PF * 5 ML VIAL ONE (23:21)
[2016-10-07] MEDS ORDERED: Ondansetron INJ* 2 MG/ML VIAL ONE (23:21)
[2016-10-07] MEDS ORDERED: Propofol* 10 MG/ML 20 ML BTL IV PUSH ONE (23:21)
[2016-10-07] MEDS ORDERED: PROCHLORPERAZINE INJ 5 MG/ML 2 ML VIAL ONE (23:21)
[2016-10-08] MEDS ORDERED: oxyCODONE/Acetamin 5/325 MG* TAB PO PRN (01:05)
--- NOTE | 2016-10-08 07:01 | RAD ---
INDICATION: Ureteral stent placement. COMPARISON: Comparison is made with a prior CT of the abdomen and pelvis from October 07, 2016. TECHNIQUE: 9 seconds of intermittent fluoroscopic guidance were provided and 5 spot films of the abdomen were centered on the left side. FINDINGS: There is partial opacification of the left renal collecting system. Subsequently there is placement of a double-J stent catheter on the left side which demonstrates normal course. IMPRESSION: INTRAOPERATIVE CONTROL FILMS. CPT II Codes: 6045F
[2016-10-08 07:48] VITALS: BP 129/56
--- NOTE | 2016-10-08 20:18 | OP ---
CC: Dr. Chan * DATE OF OPERATION: 10/07/16 - ROOM #339 DATE OF : 58 SURGEON: Víctor Sanz MD ANESTHESIOLOGIST: Patrice Etienne MD ANESTHESIA: General. PRE-OP DIAGNOSES: 1. Left renal colic. 2. Distal left ureteral calculus. POST-OP DIAGNOSES: 1. Left renal colic. 2. Distal left ureteral calculus. OPERATIVE PROCEDURE: 1. Cystoscopy. 2. Left ureteroscopy and laser lithotripsy of left ureteral calculus. 3. Left retrograde pyelography and placement of left ureteral stent (6-Moroccan). INDICATIONS: Ms. Santoyo is a 56-year-old white female who is a known stone former and who has left renal calculi. She had several endoscopic and shock wave lithotripsies in the last 4 months with the last procedure performed on . She had residual left renal calculi. She presented to the emergency room today with symptoms of left renal colic. She did not have any fever or chills. Her urinalysis showed microscopic hematuria but no signs of infection. There was slight elevation of her white count, but no shift. Non-contrast CT of the abdomen and pelvis showed an 8-mm obstructing calculus in the distal left ureter about 2 cm proximal to the ureterovesical junction. Her vital signs were normal and she was afebrile. Because of the above history and finding and the size of the stone and the recurrent acute pain, the patient is taken to the operating room urgently for the above procedure. PATHOLOGY AT CYSTOSCOPY: The bladder mucosa looked normal. There were no suspicious bladder lesions seen. There was a single ureteral orifice on each side. Clear efflux was noted from the right, no efflux was noted from the left orifice. After placement of the guidewire in the left kidney, there was a hydronephrotic drip of concentrated looking urine. The urine did not look cloudy or infected. Upon left ureteroscopy, there were two calculi noted in the distal ureter. a small calculus measured about 2 to 3 mm and the larger calculus measuring 8 mm. DESCRIPTION OF PROCEDURE: After successful general anesthesia, the patient was placed in the lithotomy position and prepped and draped for cystoscopy. Cystoscopy was then performed and the bladder carefully inspected and the above findings were noted. A flexible-tip guidewire was then introduced into the left orifice and was positioned in the area of the renal pelvis. There was prompt hydronephrotic drip from the left kidney. An open-ended catheter was then positioned in the area of the renal pelvis. The collecting system was then aspirated with syringe and a total of 30 cc of concentrated and slightly bloody urine was evacuated. The specimen was sent for urine culture and sensitivity. After the hydronephrotic drip slowed down, 2 to 3 cc of non-diluted contrast was injected delineating the collecting system. With the guidewire in place, a size 6.5 semirigid ureteroscope was introduced inside the bladder. A flexible-tip basket was then introduced through the port of the ureteroscope and the flexible tip was introduced inside the left ureter and used as a guide to introduce the ureteroscope. There was mild narrowing of the distal ureter; however, it yielded easily to the ureteroscope. Proximal to the partial narrowing of the ureter, the 2 calculi were noted. The smaller calculus was engaged with the basket and was extracted. The larger calculus was engaged in the basket to prevent its proximal migration. A size 550 micron laser fiber was introduced through the other port of the ureteroscope and the stone was broken into multiple fragments. The fragments were then extracted and sent for stone analysis. There was no trauma or injury to the ureteral wall. After final ureteroscopy confirming there were no residual calculi and no ureteral injury, the ureteroscope was removed keeping the guidewire in place. A size 6-Moroccan stent was then fed on top of the guidewire and positioned with the proximal end coiling in renal pelvis and the distal end coiling inside the bladder. There was prompt drainage of contrast from the kidney and no extravasation. The patient tolerated the procedure well and left the operating room in good condition. The plan is to keep the stent in place for 7 to 10 days. It will be removed in the office as an outpatient. [id number]/[facility] #: [id number] MTDD
--- NOTE | 2016-10-09 03:16 | DS ---
CC: Dr. Chan * DISCHARGE SUMMARY: DATE OF ADMISSION: 10/07/16 DATE OF DISCHARGE: 10/08/16 FINAL DIAGNOSES: 1. Left renal colic. 2. Left ureteral calculi. 3. Left renal calculus. OPERATION: 1. Cystoscopy. 2. Left ureteroscopy, laser lithotripsy and left ureteral stent placement on . HISTORY: Mrs. Santoyo is a 56-year-old white female who is a known stone former , who had required several procedures for calculi in her left kidney and left ureter in the last 4 months. The last procedure was performed on 08/04/16 and consisted of shock wave lithotripsy of the left renal calculus. Patient was doing fine until the day of her admission, when she started having symptoms of left renal colic. There was no associated fever or chills. She went to the emergency room where her vital signs were normal. There was slight elevation of her white count. Urine analysis showed blood but no infection. Noncontrast CT of the abdomen and pelvis showed an 8 mm obstructing calculus in the distal left ureter about 2 cm above the ureterovesical junction. There was moderate degree of left hydronephrosis and hydroureter and another calculus was noted in the lower pole calyx of the left kidney. No calculi were seen on the right side. COURSE IN HOSPITAL: Because of the size of the stone and the degree of obstruction and pain, patient was taken urgently to the operating room where she underwent a left ureteroscopy, laser lithotripsy and left ureteral stent placement. All the stone fragments seen in the ureter were extracted. The procedure was uncomplicated. Because the patient lives an hour away from [place] and because she was nauseated and not feeling fully recovered from the procedure and anesthesia, and it was close to midnight, it was decided to keep her overnight for observation. She did well, still feeling tired, but no fever, and complete resolution of her pain. The patient is being discharged home this morning on ibuprofen as needed for pain. Instructions were given for followup and care regarding her stent. She will be seen in the office in 10 days for stent removal. [id number]/[facility] #: [id number] MTDD
== END 2016-10-08 09:55 | disposition home or self-care (01) ==
LOC: ED 16:46 → OR 21:08 → SSU 10-08 00:05
PROVIDERS: ADMIT Urology; ATTEND Urology
DX: N20.2 Calculus of kidney with calculus of ureter (principal); F17.200 Nicotine dependence, unspecified, uncomplicated
CPT/HCPCS: 36415; 74176; 74420; 80053; 81003; 81015; 82365; 83605; 83690; 85025; 87086; 88300; 96374; 96375; 99283; C1876; J0330; J0780; J1100; J1885; J1956; J2250; J2405; J2704; J3010

== ENCOUNTER 2016-12-11 09:57 | Emergency (ER) | payer BC ==
[2016-12-11 10:33] VITALS: BP 129/81
--- NOTE | 2016-12-11 10:44 | UC ---
Throat Pain/Nasal Jignesh HPI - HPI Summary HPI Summary: patient has had 4 weeks of allergy symtpoms that have progressed into sinus and ear pressure, pain around the left eye, she is a smoker. - History of Current Complaint Chief Complaint: UCGeneralIllness Stated Complaint: SINUS/EAR PAIN Time Seen by Provider: 12/11/16 10:27 Hx Obtained From: Patient Hx Last Menstrual Period: LAST WK FOR ONE DAY AFTER NONE FOR 2 YRS. ?: No Onset/Duration: Sudden Onset, Lasting Weeks Severity: Severe Associated Signs & Symptoms: Positive: Wheezing, Hoarseness, Sinus Discomfort, Nasal Discharge - Allergies/Home Medications Allergies/Adverse Reactions: Allergies Allergy/AdvReac Type Severity Reaction Status Date / Time Chlorhexidine Allergy Intermediate Swelling Verified 12/11/16 10:33 [From Hibiclens] Phenytoin [From Dilantin] Allergy Intermediate Hives Verified 12/11/16 10:33 Ceftriaxone [From Rocephin] Allergy Hives Verified 12/11/16 10:33 Home Medications: Home Medications Fluticasone NASAL * [Flonase *] 2 spray BOTH NARES DAILY 12/11/16 [History Confirmed 12/11/16] Ibuprofen TAB* [Advil TAB*] 400 mg PO Q6H PRN 12/11/16 [History Confirmed ] PMH/Surg Hx/FS Hx/Imm Hx Previously Healthy: Yes Other History Of: Negative For: Anticoagulant Therapy - Surgical History Surgical History: Yes Surgery Procedure, Year, and Place: LIVER RESECTION 70% FOR A HEMANGIOMA with gall bladder removal 2000. C section 1986. left hand surgery 1997. LITHOTRIPSY. LEFT URETERAL STENT INSERTION X 2- [facility]-2017. 2 ADDITIONAL SX FOR KIDNEY INFECTIONS--2017 - Family History Known Family History: Positive: Hypertension - Social History Alcohol Use: None Substance Use Type: None Smoking Status (MU): Light Every Day Tobacco Smoker Type: Cigarettes Amount Used/How Often: 1/2 PPD Length of Time of Smoking/Using Tobacco: 1 YR Have You Smoked in the Last Year: Yes When Did the Patient Quit Smoking/Using Tobacco: 20 YRS AGO - Immunization History Most Recent Influenza Vaccination: NO Most Recent Pneumonia Vaccination: refused Review of Systems Constitutional: Negative Skin: Negative Eyes: Negative ENT: Sore Throat, Ear Ache, Nasal Discharge, Sinus Congestion, Sinus Pain/ Tenderness Respiratory: Cough Cardiovascular: Negative Gastrointestinal: Negative Genitourinary: Negative Motor: Negative Neurovascular: Negative Musculoskeletal: Negative Neurological: Headache Psychological: Negative Is Patient Immunocompromised?: No All Other Systems Reviewed And Are Negative: Yes Physical Exam Triage Information Reviewed: Yes Appearance: Well-Nourished, Ill-Appearing, Pain Distress Vital Signs: Initial Vital Signs Temp 97.9 F 12/11/16 10:25 Pulse 65 12/11/16 10:25 Resp 16 12/11/16 10:25 BP 129/81 12/11/16 10:25 Pulse Ox 100 12/11/16 10:25 Eye Exam: Normal Eyes: Positive: Conjunctiva Clear ENT: Positive: Pharyngeal erythema - with exudate, Nasal congestion, Nasal drainage, TM bulging Dental Exam: Normal Neck exam: Normal Neck: Positive: Supple, Nontender, No Lymphadenopathy Respiratory Exam: Normal Respiratory: Positive: Chest non-tender, Normal breath sounds, No respiratory distress, No accessory muscle use, Wheezing, Inspiration Cardiovascular Exam: Normal Cardiovascular: Positive: RRR, No Murmur, Pulses Normal Abdominal Exam: Normal Abdomen Description: Positive: Nontender, No Organomegaly, Soft Bowel Sounds: Positive: Present Musculoskeletal Exam: Normal Musculoskeletal: Positive: Strength Intact, ROM Intact, No Edema Neurological Exam: Normal Neurological: Positive: Alert, Muscle Tone Normal Psychological Exam: Normal Skin Exam: Normal Throat Pain/Nasal Course/Dx - Course Course Of Treatment: hx obtained, exam performed ,meds reviewed, treated for sinusitis and bronchospasm - Differential Dx/Diagnosis Differential Diagnosis/HQI/PQRI: Influenza, Laryngitis, Otitis Media, Pharyngitis, Sinusitis, URI Provider Diagnoses: sinusitis. left serous otitis. bronchospasm. tobacco abuse Discharge - Discharge Plan Condition: Stable Disposition: HOME Patient Education Materials: Sinusitis (ED) Additional Instructions: 1. take the medication as prescribed. 2. Increase fluid intake and use warm compresses to the sinuses to facilitate drainage
== END 2016-12-11 10:48 | disposition home or self-care (01) ==
LOC: UCCORT 09:57
DX: H65.92 Unspecified nonsuppurative otitis media, left ear (principal); J98.01 Acute bronchospasm; J32.9 Chronic sinusitis, unspecified; F17.210 Nicotine dependence, cigarettes, uncomplicated; Z88.8 Allergy status to other drugs, medicaments and biological substances
CPT/HCPCS: 99212; G0463

== ENCOUNTER 2017-05-02 12:40 | Emergency (ER) | payer BC ==
[2017-05-02 15:38] VITALS: BP 134/77
--- NOTE | 2017-05-02 15:58 | UC ---
Throat Pain/Nasal Jignesh HPI - HPI Summary HPI Summary: 56 y/o female with 2 weeks h/o cold symptoms that settled into sinuses, worse on L, increasing with head bent, + pain posterior ear R, fever, chills x 3-4 days. symptoms increasing, + cough, dry. chest pain with coughing , no throat pain, no deep chest pain works in day care center - History of Current Complaint Hx Obtained From: Patient Hx Last Menstrual Period: LAST WK FOR ONE DAY AFTER NONE FOR 2 YRS. ?: No Onset/Duration: Gradual Onset, Lasting Weeks Severity: Moderate Pain Intensity: 5 Pain Scale Used: 0-10 Numeric <Shante Tello - Last Filed: 05/02/17 15:58> <Emely Helton - Last Filed: 05/02/17 16:10> - History of Current Complaint Chief Complaint: UCRespiratory Stated Complaint: COUGH, FEVER, MATIAS Time Seen by Provider: 05/02/17 15:39 - Allergies/Home Medications Allergies/Adverse Reactions: Allergies Allergy/AdvReac Type Severity Reaction Status Date / Time chlorhexidine Allergy Intermediate Swelling Verified 05/02/17 15:32 [From Hibiclens] ceftriaxone [From Rocephin] Allergy Hives Verified 05/02/17 15:32 phenytoin Allergy Hives Verified 05/02/17 15:32 Home Medications: Home Medications Rabeprazole Sodium [Aciphex] 20 mg PO BID 05/02/17 [History Confirmed 05/02/17] PMH/Surg Hx/FS Hx/Imm Hx Previously Healthy: Yes Other History Of: Negative For: Anticoagulant Therapy - Surgical History Surgical History: Yes Surgery Procedure, Year, and Place: LIVER RESECTION 70% FOR A HEMANGIOMA with gall bladder removal 2000. C section 1986. left hand surgery 1997. LITHOTRIPSY. LEFT URETERAL STENT INSERTION X 2- SHAUN-2017. 2 ADDITIONAL SX FOR KIDNEY INFECTIONS--2017 - Family History Known Family History: Positive: Hypertension - Social History Alcohol Use: None Substance Use Type: None Smoking Status (MU): Light Every Day Tobacco Smoker Type: Cigarettes Amount Used/How Often: 1/2 PPD Length of Time of Smoking/Using Tobacco: 1 YR Have You Smoked in the Last Year: Yes When Did the Patient Quit Smoking/Using Tobacco: 20 YRS AGO - Immunization History Most Recent Influenza Vaccination: NO Most Recent Pneumonia Vaccination: refused <Shante Tello - Last Filed: 05/02/17 15:58> Review of Systems Constitutional: Fever, Chills, Fatigue ENT: Dental Pain, Sore Throat, Ear Ache, Sinus Congestion, Sinus Pain/Tenderness Respiratory: Cough Is Patient Immunocompromised?: No All Other Systems Reviewed And Are Negative: Yes <Shante Tello - Last Filed: 05/02/17 15:58> Physical Exam Triage Information Reviewed: Yes Appearance: No Pain Distress, Well-Nourished, Ill-Appearing - mild Vital Signs: Initial Vital Signs Temp 100 F 05/02/17 15:34 Pulse 88 05/02/17 15:34 Resp 16 05/02/17 15:34 BP 134/77 05/02/17 15:34 Pulse Ox 98 05/02/17 15:34 Eye Exam: Normal ENT: Positive: Hearing grossly normal, Pharyngeal erythema - minimal, Nasal congestion, TM bulging - + fluid, TM dull, TM red, Sinus tenderness - frontal , max. Negative: Tonsillar swelling, Tonsillar exudate, Trismus, Muffled voice, Hoarse voice, Dental tenderness, Uvula midline Neck: Positive: Supple, Nontender, No Lymphadenopathy. Negative: Nuchal Rigidity Respiratory: Positive: Chest non-tender, Lungs clear, Normal breath sounds, No respiratory distress, No accessory muscle use. Negative: Crackles, Rhonchi, Stridor, Wheezing Cardiovascular: Positive: RRR, No Murmur, Pulses Normal Abdomen Description: Negative: CVA Tenderness (R), CVA Tenderness (L) Musculoskeletal Exam: Normal Skin Exam: Normal <Shante Tello - Last Filed: 05/02/17 15:58> Vital Signs: Initial Vital Signs Temp 100 F 05/02/17 15:34 Pulse 88 05/02/17 15:34 Resp 16 05/02/17 15:34 BP 134/77 05/02/17 15:34 Pulse Ox 98 05/02/17 15:34 <Emely Helton - Last Filed: 05/02/17 16:10> Throat Pain/Nasal Course/Dx - Course Course Of Treatment: ABx given for sinusitis, told to go to ER if worsening symptoms. - Differential Dx/Diagnosis Differential Diagnosis/HQI/PQRI: Epiglottitis, Foreign Body, Laryngitis, Otitis Media Provider Diagnoses: AOM b/l, sinusitis <Sahnte Tello - Last Filed: 05/02/17 15:58> Discharge <Shante Tello - Last Filed: 05/02/17 15:58> <Emely Helton - Last Filed: 05/02/17 16:10> - Discharge Plan Condition: Fair Disposition: HOME Prescriptions: Amoxicillin/Clavulanate TAB* [Augmentin TAB 875*] 875 mg PO BID #20 tab Patient Education Materials: Sinusitis (ED) Referrals: Gabo Chan MD [Primary Care Provider] - Additional Instructions: - GO To ER with increased pain, swelling, fever >103 - Increase fluids - Take antibiotics as directed. - Motrin/ tylenol for pain - Increase rest Attestation Statement User Type: Provider - I was available for consult. This patient was seen by the KAYLEE. The patient was not presented to, seen by, or examined by me. Abigail <Emely Helton - Last Filed: 05/02/17 16:10>
== END 2017-05-02 16:08 | disposition home or self-care (01) ==
LOC: UCCORT 12:40
DX: H66.93 Otitis media, unspecified, bilateral (principal); J32.9 Chronic sinusitis, unspecified; F17.210 Nicotine dependence, cigarettes, uncomplicated
CPT/HCPCS: 99212; G0463

== ENCOUNTER 2018-01-09 16:56 | Emergency (ER) | payer BC ==
[2018-01-09 18:43] VITALS: BP 133/73
--- NOTE | 2018-01-09 19:10 | ED ---
Throat Pain/Nasal Congestion - HPI Summary HPI Summary: 57 yr old with a month of sinus congestion, worsening pressure especially in the right maxillary and frontal sinus area. No fever or chills. She does have right ear pain as well. - History of Current Complaint Chief Complaint: UCGeneralIllness Time Seen by Provider: 01/09/18 18:52 - Allergies/Home Medications Allergies/Adverse Reactions: Allergies Allergy/AdvReac Type Severity Reaction Status Date / Time chlorhexidine Allergy Intermediate Swelling Verified 01/09/18 18:39 [From Hibiclens] ceftriaxone [From Rocephin] Allergy Hives Verified 01/09/18 18:39 phenytoin Allergy Hives Verified 01/09/18 18:39 Home Medications: Home Medications Fluticasone NASAL SPRAY 50MCG* [Flonase NASAL SPRAY 50MCG*] 2 spray INH DAILY [History Confirmed 01/09/18] PMH/Surg Hx/FS Hx/Imm Hx Endocrine/Hematology History: Denies: Hx Anticoagulant Therapy, Hx Blood Disorders, Hx Blood Transfusions, Hx Bone Marrow Disease, Hx Diabetes, Hx Thyroid Disease, Hx Anemia, Hx Unexplained Bleeding Cardiovascular History: Reports: Hx Valvular Heart Disease - MVP Denies: Hx Hypertension, Hx Pacemaker/ICD Respiratory History: Denies: Hx Asthma, Hx Chronic Obstructive Pulmonary Disease (COPD) GI History: Reports: Hx Gastroesophageal Reflux Disease - ON MEDICATION FOR, Other GI Disorders - LIVER RESECTION-2000- FOR HEMANGIOMA Denies: Hx Ulcer History: Reports: Hx Kidney Stones - HX OF AND CURRENTLY Sensory History: Reports: Hx Contacts or Glasses - GLASSES Denies: Hx Hearing Aid Opthamlomology History: Reports: Hx Contacts or Glasses - GLASSES Neurological History: Reports: Hx Headaches - OCCASIONAL- TX WITH IBUPROFEN OR TYLENOL, Hx Migraine - OCCASIONAL- TX WITH IBUPROFEN OR TYLENOL, Hx Seizures - EPILEPSY A CHILD- NO SEIZURE SINCE AGE 15 Psychiatric History: Denies: Hx Anxiety, Hx Panic Disorder, Hx Community Mental Health Tx, Hx Bipolar Disorder - Surgical History Surgery Procedure, Year, and Place: LIVER RESECTION 70% FOR A HEMANGIOMA with gall bladder removal 2000. C section 1986. left hand surgery 1997. LITHOTRIPSY. LEFT URETERAL STENT INSERTION X 2- HSAUN-2017. 2 ADDITIONAL SX FOR KIDNEY INFECTIONS--2017 Hx Anesthesia Reactions: No Infectious Disease History: No Infectious Disease History: Denies: Hx Hepatitis, Hx Human Immunodeficiency Virus (HIV), Hx of Known/ Suspected MRSA, Traveled Outside the [place] in Last 30 Days - Family History Known Family History: Positive: Hypertension - Social History Alcohol Use: None Substance Use Type: Reports: None Smoking Status (MU): Light Every Day Tobacco Smoker Type: Cigarettes Amount Used/How Often: 1/2 PPD Length of Time of Smoking/Using Tobacco: 1 YR Have You Smoked in the Last Year: Yes Review of Systems Constitutional: Negative Positive: Other - foot and ankle pain All Other Systems Reviewed And Are Negative: Yes Physical Exam Triage Information Reviewed: Yes Vital Signs On Initial Exam: Initial Vitals Temp Pulse Resp BP Pulse Ox 97.8 F 73 16 133/73 100 01/09/18 18:37 01/09/18 18:37 01/09/18 18:37 01/09/18 18:37 01/09/18 18:37 Vital Signs Reviewed: Yes Appearance: Positive: Well-Appearing, No Pain Distress Skin: Positive: Warm, Skin Color Reflects Adequate Perfusion Head/Face: Positive: Normal Head/Face Inspection Eyes: Positive: EOMI ENT: Positive: Normal ENT inspection, Pharyngeal erythema, Nasal congestion, Nasal drainage, TMs normal, Sinus tenderness - right maxillary and frontal Neck: Positive: Nontender Respiratory/Lung Sounds: Positive: Clear to Auscultation, Breath Sounds Present Cardiovascular: Positive: RRR. Negative: Murmur Abdomen Description: Negative: Distended Musculoskeletal: Positive: Strength/ROM Intact Neurological: Positive: Sensory/Motor Intact, Alert, Oriented to Person Place, Time, CN Intact II-III Psychiatric: Positive: Normal Diagnostics - Vital Signs Vital Signs Temp Pulse Resp BP Pulse Ox 01/09/18 18:37 97.8 F 73 16 133/73 100 - Laboratory Lab Statement: Any lab studies that have been ordered have been reviewed, and results considered in the medical decision making process. EENT Course/Dx - Course Course Of Treatment: Sinusitis. Rx Augmentin. She has allergy to rocephin, but states she takes augmentin without having any issues. - Diagnoses Provider Diagnoses: Sinusitis Discharge - Sign-Out/Discharge Documenting (check all that apply): Patient Departure All imaging exams completed and their final reports reviewed: No Studies - Discharge Plan Condition: Good Disposition: HOME Prescriptions: Amoxicillin/Clavulanate TAB* [Augmentin TAB 875*] 875 mg PO BID #20 tab Patient Education Materials: Sinusitis (ED) Referrals: Gabo Chan MD [Primary Care Provider] - 2 Days - Billing Disposition and Condition Condition: GOOD Disposition: Home
== END 2018-01-09 19:10 | disposition home or self-care (01) ==
LOC: UCCORT 16:56
DX: R09.81 Nasal congestion (principal); F17.210 Nicotine dependence, cigarettes, uncomplicated; Z88.1 Allergy status to other antibiotic agents; Z88.8 Allergy status to other drugs, medicaments and biological substances
CPT/HCPCS: 99212; G0463

== ENCOUNTER 2018-07-12 10:11 | Emergency (ER) | payer BC ==
[2018-07-12 10:41] VITALS: BP 143/73
--- NOTE | 2018-07-12 10:52 | UC ---
Throat Pain/Nasal Jignesh HPI - HPI Summary HPI Summary: ONE MONTH AGO ALLERGIES STARTED. FOR TWO WEEKS EAR PAIN AND RIGHT SINUS PAIN. RRIGHT EAR PAIN, AND SWOLLEN LYMPH NODES . THICK SINUS DRAINAGE. SORE THROAT. NO COUGH. NO CHILLS OR FEVER. NO N/V/D. ALSO RINGING OF EARS AND DIZZY ON AND OFF. - History of Current Complaint Chief Complaint: UCRespiratory Stated Complaint: SINUS CONCERN,RT EAR PAIN Time Seen by Provider: 07/12/18 10:37 Hx Obtained From: Patient Hx Last Menstrual Period: n/a ?: No Onset/Duration: Sudden Onset, Lasting Days Severity: Moderate Pain Intensity: 5 Associated Signs & Symptoms: Positive: Sinus Discomfort, Nasal Discharge Related History: Seasonal Allergies - Allergies/Home Medications Allergies/Adverse Reactions: Allergies Allergy/AdvReac Type Severity Reaction Status Date / Time chlorhexidine Allergy Intermediate Swelling Verified 07/12/18 10:27 [From Hibiclens] ceftriaxone [From Rocephin] Allergy Hives Verified 07/12/18 10:27 phenytoin Allergy Hives Verified 07/12/18 10:27 Home Medications: Home Medications Ibuprofen TAB* [Advil TAB*] 400 mg PO Q6H PRN 07/12/18 [History Confirmed ] guaiFENesin ER TAB [Mucinex*] 600 mg PO BID PRN 07/12/18 [History Confirmed ] PMH/Surg Hx/FS Hx/Imm Hx Previously Healthy: Yes Other History Of: Negative For: Anticoagulant Therapy - Surgical History Surgical History: Yes Surgery Procedure, Year, and Place: LIVER RESECTION 70% FOR A HEMANGIOMA with gall bladder removal 2000. C section 1986. left hand surgery 1997. LITHOTRIPSY. LEFT URETERAL STENT INSERTION X 2- SHAUN-2017. 2 ADDITIONAL SX FOR KIDNEY INFECTIONS--2017 - Family History Known Family History: Positive: Hypertension - Social History Alcohol Use: None Substance Use Type: None Smoking Status (MU): Light Every Day Tobacco Smoker Type: Cigarettes Amount Used/How Often: 1/2 PPD Length of Time of Smoking/Using Tobacco: 2 YEARS AGO Have You Smoked in the Last Year: Yes When Did the Patient Quit Smoking/Using Tobacco: 20 YRS AGO Household Exposure Type: Cigarettes - Immunization History Most Recent Influenza Vaccination: NO Most Recent Pneumonia Vaccination: refused Review of Systems All Other Systems Reviewed And Are Negative: Yes Constitutional: Positive: Negative Skin: Positive: Negative Eyes: Positive: Negative ENT: Positive: Sore Throat, Ear Ache, Nasal Discharge, Sinus Congestion, Sinus Pain/Tenderness Respiratory: Positive: Cough Cardiovascular: Positive: Negative Gastrointestinal: Positive: Negative Genitourinary: Positive: Negative Motor: Positive: Negative Neurovascular: Positive: Negative Musculoskeletal: Positive: Negative Neurological: Positive: Headache Psychological: Positive: Negative Is Patient Immunocompromised?: No Physical Exam Triage Information Reviewed: Yes Appearance: Well-Nourished, Ill-Appearing, Pain Distress Vital Signs: Initial Vital Signs Temp 97.5 F 07/12/18 10:29 Pulse 70 07/12/18 10:29 Resp 20 07/12/18 10:29 BP 143/73 07/12/18 10:29 Pulse Ox 100 07/12/18 10:29 Vital Signs Reviewed: Yes Eye Exam: Normal ENT: Positive: Nasal congestion, Nasal drainage, TM bulging - reght, TM dull, Sinus tenderness - right frontal Dental Exam: Normal Neck exam: Normal Neck: Positive: Supple, Nontender, No Lymphadenopathy Respiratory Exam: Normal Respiratory: Positive: Chest non-tender, Lungs clear, Normal breath sounds Cardiovascular Exam: Normal Cardiovascular: Positive: RRR, No Murmur, Pulses Normal Abdominal Exam: Normal Bowel Sounds: Positive: Present Musculoskeletal Exam: Normal Neurological Exam: Normal Psychological Exam: Normal Skin Exam: Normal Throat Pain/Nasal Course/Dx - Course Course Of Treatment: hx obtained, exam performed ,meds reviewed, treated for sinusitis - Differential Dx/Diagnosis Differential Diagnosis/HQI/PQRI: Otitis Media, Pharyngitis, Sinusitis, URI Provider Diagnosis: Sinusitis, acute Discharge - Sign-Out/Discharge Documenting (check all that apply): Patient Departure All imaging exams completed and their final reports reviewed: No Studies - Discharge Plan Condition: Stable Disposition: HOME Prescriptions: Amoxicillin/Clavulanate TAB* [Augmentin TAB 875*] 875 mg PO BID #20 tab Patient Education Materials: Sinusitis (ED) Forms: *Work Release Referrals: Gabo Chan MD [Primary Care Provider] - Additional Instructions: 1. Take the medication as prescribed. 2. Warm compresses and ibuprofen as needed. 3. FOllow up if not improving in the next 2-3 days - Billing Disposition and Condition Condition: STABLE Disposition: Home - Attestation Statements Provider Attestation: I was available for consult. This patient was seen by the KAYLEE. The patient was not presented to, seen by, or examined by me. -Abigail
== END 2018-07-12 10:59 | disposition home or self-care (01) ==
LOC: UCCORT 10:11
DX: J01.90 Acute sinusitis, unspecified (principal); H92.01 Otalgia, right ear; J02.9 Acute pharyngitis, unspecified; H93.8X3 Other specified disorders of ear, bilateral; F17.210 Nicotine dependence, cigarettes, uncomplicated; Z88.8 Allergy status to other drugs, medicaments and biological substances; Z88.1 Allergy status to other antibiotic agents
CPT/HCPCS: 99212; G0463

== ENCOUNTER 2019-03-12 09:04 | Emergency (ER) | payer BC ==
[2019-03-12 09:40] VITALS: BP 132/80
--- NOTE | 2019-03-12 10:51 | UC ---
Back Pain HPI - HPI Summary HPI Summary: back pain x 1 month location is lower and cervical / neck area pain is 5 out of 10, worse with movement , better with rest / Ibuprofen no known injury , hx of kidney stones , denies any dysuria, no hematuria - History of Current Complaint Chief Complaint: UCBackPain Stated Complaint: BACK PAIN Time Seen by Provider: 03/12/19 09:52 Hx Obtained From: Patient Hx Last Menstrual Period: n/a ?: No Onset/Duration: Gradual Onset, Lasting Weeks - 4, Still Present Timing: Constant Severity Initially: Moderate Severity Currently: Moderate Pain Intensity: 5 Back Pain: Is Discrete @ - cervical and lower back Character: Aching, Stiffness Aggravating Factor(s): Movement, Lifting, Bending Alleviating Factor(s): Rest, Cold Associated Signs And Symptoms: Negative: Swelling, Weakness, Numbness, Tingling - Allergies/Home Medications Allergies/Adverse Reactions: Allergies Allergy/AdvReac Type Severity Reaction Status Date / Time chlorhexidine Allergy Intermediate Swelling Verified 03/12/19 09:34 [From Hibiclens] ceftriaxone [From Rocephin] Allergy Hives Verified 03/12/19 09:34 phenytoin Allergy Hives Verified 03/12/19 09:34 PMH/Surg Hx/FS Hx/Imm Hx - Additional Past Medical History Additional PMH: Yes: MVP, TACHYCARDIA Cardiovascular History: Cardiac Disease Other History Of: Negative For: Anticoagulant Therapy - Surgical History Surgical History: Yes Surgery Procedure, Year, and Place: LIVER RESECTION 70% FOR A HEMANGIOMA with gall bladder removal 2000. C section 1986. left hand surgery 1997. LITHOTRIPSY. LEFT URETERAL STENT INSERTION X 2- SHAUN-2016. 2 ADDITIONAL SX FOR KIDNEY INFECTIONS--2017 - Family History Known Family History: Positive: Hypertension - Social History Alcohol Use: None Substance Use Type: None Smoking Status (MU): Light Every Day Tobacco Smoker Type: Cigarettes Amount Used/How Often: 1/2 PPD Length of Time of Smoking/Using Tobacco: 2 YEARS AGO Have You Smoked in the Last Year: Yes When Did the Patient Quit Smoking/Using Tobacco: 20 YRS AGO Household Exposure Type: Cigarettes - Immunization History Most Recent Influenza Vaccination: NO Most Recent Pneumonia Vaccination: refused Review of Systems All Other Systems Reviewed And Are Negative: Yes Constitutional: Positive: Negative Skin: Positive: Negative Eyes: Positive: Negative Is Patient Immunocompromised?: No Physical Exam Triage Information Reviewed: Yes Appearance: Well-Appearing, No Pain Distress, Well-Nourished Vital Signs: Initial Vital Signs Temp 98.2 F 03/12/19 09:35 Pulse 70 03/12/19 09:35 Resp 14 03/12/19 09:35 BP 132/80 03/12/19 09:35 Pulse Ox 100 03/12/19 09:35 Vital Signs Reviewed: Yes Eye Exam: Normal Eyes: Positive: Conjunctiva Clear ENT Exam: Normal ENT: Positive: Normal ENT inspection, Hearing grossly normal, Pharynx normal Neck: Positive: Supple, Nontender, No Lymphadenopathy Respiratory: Positive: Chest non-tender, Lungs clear, Normal breath sounds Cardiovascular: Positive: RRR, No Murmur, Pulses Normal Abdominal Exam: Normal Abdomen Description: Positive: Nontender, Soft. Negative: CVA Tenderness (R), CVA Tenderness (L), Distended, Guarding Bowel Sounds: Positive: Present Musculoskeletal: Positive: Other: - lower back : no swelling, no erythema, + tenderness distal thoracic/ proximal lumbar, pain with flexion / extension cervical neck : + tenderness, no swelling, pain with felxion Diagnostics - Radiology No standard instances Radiology Interpretation Completed By: Radiologist Summary of Radiographic Findings: xray report cervical spine : IMPRESSION: #. Degenerative spondylosis and facet joint osteoarthritis with progression compared with the 2004 exam. xray report thoracolumbar: IMPRESSION: #. Degenerative spondylosis and facet joint osteoarthritis without significant change. Back Pain Course/Dx - Differential Dx/Diagnosis Provider Diagnosis: Neck pain, Lower back pain Discharge ED - Sign-Out/Discharge Documenting (check all that apply): Patient Departure All imaging exams completed and their final reports reviewed: Yes - Discharge Plan Condition: Stable Disposition: HOME Patient Education Materials: Back Pain (ED) Referrals: Gabo Chan MD [Primary Care Provider] - 7 Days - Billing Disposition and Condition Condition: STABLE Disposition: Home
== END 2019-03-12 10:57 | disposition home or self-care (01) ==
LOC: UCCORT 09:04
DX: M54.2 Cervicalgia (principal); M54.5 Low back pain; M47.892 Other spondylosis, cervical region; M47.895 Other spondylosis, thoracolumbar region; F17.210 Nicotine dependence, cigarettes, uncomplicated; Z88.8 Allergy status to other drugs, medicaments and biological substances
CPT/HCPCS: 72040; 72080; 99211; G0463

== ENCOUNTER 2019-03-26 15:45 | Emergency (ER) | payer BC ==
[2019-03-26 16:22] VITALS: BP 131/64
--- NOTE | 2019-03-26 18:50 | UC ---
Throat Pain/Nasal Jignesh HPI - History of Current Complaint Chief Complaint: UCRespiratory Stated Complaint: SORE THROAT Time Seen by Provider: 03/26/19 18:45 Hx Last Menstrual Period: n/a Pain Intensity: 5 - Allergies/Home Medications Allergies/Adverse Reactions: Allergies Allergy/AdvReac Type Severity Reaction Status Date / Time chlorhexidine Allergy Intermediate Swelling Verified 03/26/19 16:22 [From Hibiclens] ceftriaxone [From Rocephin] Allergy Hives Verified 03/26/19 16:22 phenytoin Allergy Hives Verified 03/26/19 16:22 Home Medications: Home Medications Acetaminophen [Acetaminophen Extra Strength] 1,000 mg PO ONCE 03/26/19 [History Confirmed 03/26/19] PMH/Surg Hx/FS Hx/Imm Hx Other History Of: Negative For: Anticoagulant Therapy - Surgical History Surgical History: Yes Surgery Procedure, Year, and Place: LIVER RESECTION 70% FOR A HEMANGIOMA with gall bladder removal 2000. C section 1986. left hand surgery 1997. LITHOTRIPSY. LEFT URETERAL STENT INSERTION X 2- SHAUN-2016. 2 ADDITIONAL SX FOR KIDNEY INFECTIONS--2017 - Family History Known Family History: Positive: Hypertension - Social History Alcohol Use: None Substance Use Type: None Smoking Status (MU): Light Every Day Tobacco Smoker Type: Cigarettes Amount Used/How Often: 1/2 PPD Length of Time of Smoking/Using Tobacco: 2 YEARS AGO Have You Smoked in the Last Year: Yes When Did the Patient Quit Smoking/Using Tobacco: 20 YRS AGO Household Exposure Type: Cigarettes - Immunization History Most Recent Influenza Vaccination: NO Most Recent Pneumonia Vaccination: refused Physical Exam Vital Signs: Initial Vital Signs Temp 97.8 F 03/26/19 16:18 Pulse 78 03/26/19 16:18 Resp 18 03/26/19 16:18 BP 131/64 03/26/19 16:18 Pulse Ox 100 03/26/19 16:18 Discharge ED - Discharge Plan Referrals: Gabo Chan MD [Primary Care Provider] -
[2019-03-26] MEDS ORDERED: Amoxicillin/Clavulanate TAB* 875 MG PO ONE (19:10)
--- NOTE | 2019-03-26 19:12 | UC ---
Throat Pain/Nasal Jignesh HPI - HPI Summary HPI Summary: 58 y/o female presents to the urgent care c/o pt states she has not felt good for the past month. pt states for the last week her throat hurts, rt ear pain, swollen rt glands. pt to the front of her face above her cheek bones. She does have rhinorrhea that yellow. She also has. Pressure in her ears. Throat hurts and she swallows. Denies any chest congestion or shortness of breath. She's had chills for the last 2 days. - History of Current Complaint Chief Complaint: UCRespiratory Stated Complaint: SORE THROAT Time Seen by Provider: 03/26/19 18:45 Hx Obtained From: Patient Hx Last Menstrual Period: n/a Pain Intensity: 5 - Allergies/Home Medications Allergies/Adverse Reactions: Allergies Allergy/AdvReac Type Severity Reaction Status Date / Time chlorhexidine Allergy Intermediate Swelling Verified 03/26/19 16:22 [From Hibiclens] ceftriaxone [From Rocephin] Allergy Hives Verified 03/26/19 16:22 phenytoin Allergy Hives Verified 03/26/19 16:22 Home Medications: Home Medications Acetaminophen [Acetaminophen Extra Strength] 1,000 mg PO ONCE 03/26/19 [History Confirmed 03/26/19] PMH/Surg Hx/FS Hx/Imm Hx Previously Healthy: Yes GI/ History: Gastroesophageal Reflux Other History Of: Negative For: Anticoagulant Therapy - Surgical History Surgical History: Yes Surgery Procedure, Year, and Place: LIVER RESECTION 70% FOR A HEMANGIOMA with gall bladder removal 2000. C section 1986. left hand surgery 1997. LITHOTRIPSY. LEFT URETERAL STENT INSERTION X 2- SHAUN-2017. 2 ADDITIONAL SX FOR KIDNEY INFECTIONS--2017 - Family History Known Family History: Positive: Hypertension - Social History Alcohol Use: None Substance Use Type: None Smoking Status (MU): Light Every Day Tobacco Smoker Type: Cigarettes Amount Used/How Often: 1/2 PPD Length of Time of Smoking/Using Tobacco: 2 YEARS AGO Have You Smoked in the Last Year: Yes When Did the Patient Quit Smoking/Using Tobacco: 20 YRS AGO Household Exposure Type: Cigarettes - Immunization History Most Recent Influenza Vaccination: NO Most Recent Pneumonia Vaccination: refused Review of Systems All Other Systems Reviewed And Are Negative: Yes Constitutional: Positive: Chills, Other - SEE HPI Skin: Positive: Negative Eyes: Positive: Negative ENT: Positive: Sore Throat, Ear Ache, Nasal Discharge, Sinus Congestion, Sinus Pain/Tenderness Respiratory: Positive: Negative Cardiovascular: Positive: Negative Gastrointestinal: Positive: Negative Motor: Positive: Negative Neurovascular: Positive: Negative Musculoskeletal: Positive: Negative Neurological: Positive: Negative Psychological: Positive: Negative Is Patient Immunocompromised?: No Physical Exam Triage Information Reviewed: Yes Appearance: No Pain Distress, Well-Nourished, Ill-Appearing - MILD Vital Signs: Initial Vital Signs Temp 97.8 F 03/26/19 16:18 Pulse 78 03/26/19 16:18 Resp 18 03/26/19 16:18 BP 131/64 03/26/19 16:18 Pulse Ox 100 03/26/19 16:18 Vital Signs Reviewed: Yes Eye Exam: Normal Eyes: Positive: Conjunctiva Clear ENT: Positive: Pharyngeal erythema, Nasal congestion, Nasal drainage, TMs normal , Sinus tenderness Neck: Positive: Supple Respiratory: Positive: Lungs clear, Normal breath sounds, No respiratory distress Cardiovascular: Positive: RRR Musculoskeletal: Positive: Strength Intact, ROM Intact Neurological: Positive: Alert, Muscle Tone Normal Psychological: Positive: Age Appropriate Behavior Skin Exam: Normal Throat Pain/Nasal Course/Dx - Differential Dx/Diagnosis Provider Diagnosis: Sinusitis Discharge ED - Sign-Out/Discharge Documenting (check all that apply): Patient Departure All imaging exams completed and their final reports reviewed: No Studies - Discharge Plan Condition: Stable Disposition: HOME Prescriptions: Amoxicillin/Clavulanate TAB* [Augmentin TAB 875*] 875 mg PO BID #18 tab Patient Education Materials: Sinusitis (ED) Referrals: Gabo Chan MD [Primary Care Provider] - Additional Instructions: FOLLOW UP WITH YOUR DOCTOR ON 04/02/19 SCHEDULED. GET REEVALUATED SOONER IF NOT IMPROVED OR WORSE OR ANY QUESTIONS OR CONCERNS. - Billing Disposition and Condition Condition: STABLE Disposition: Home
== END 2019-03-26 19:20 | disposition home or self-care (01) ==
LOC: UCEAST 15:45
DX: J32.9 Chronic sinusitis, unspecified (principal); H92.09 Otalgia, unspecified ear; F17.210 Nicotine dependence, cigarettes, uncomplicated; Z88.8 Allergy status to other drugs, medicaments and biological substances; Z88.1 Allergy status to other antibiotic agents
CPT/HCPCS: 87651; 99212; A9270-GY; G0463

== ENCOUNTER 2019-04-22 15:02 | Emergency (ER) | payer BC ==
--- OUTSIDE RECORDS SUMMARY | 2019-04-22 17:42 | XMS REPORT | Summary of Care ---
:1960 Author Organization [facility] Address [address] [facility] [place] [address] Care Team Providers Name Role Phone Gabo Chan Primary Care Provider Reason for Referral MRI/CAT/PET Scan (Routine) Status Reason Specialty Diagnoses / Referred By Referred To Procedures Contact Contact Pending Review Diagnoses Chronic bilateral low back pain without sciatica Gabo Chan MD Procedures MR LUMBAR SPINE WO CONTRAST [address] [place] [address] Reason for Visit Reason Comments Annual Palpitations States happening more often- everyday. Tachycardia at least once a month Groin Pain Groin pain makes bilateral hips hurts and unable to sleep at night- started over a year ago. Low Back Pain Started about a week ago. Encounter Details Date Type Department Care Team Description 04/02/2019 Office Visit [place] [facility] Gabo Chan, Chronic bilateral low back pain without sciatica (Primary Dx); Medicine Gastroesophageal reflux disease without esophagitis; [address] [facility] Palpitations; [place] [address] [address] B12 deficiency [phone] [place] [address] [phone] Allergies Active Allergy Reactions Severity Noted Date Comments Phenytoin Hives 10/18/2007 Ceftriaxone Sodium In Dextrose Hives 05/10/2016 documented as of this encounter (statuses as of 04/03/2019) Medications Medication Sig Dispensed Refills Start Date End Date Status daily vitamin Oral Tab DAILY. 0 Active ACIPHEX 20 MG Oral Tab Take 20 mg by 180 Tab 3 12/28/2017 Active EC mouth TWICE DAILY. amoxicillin-clavulanic Take by mouth 0 Active acid (AUGMENTIN 875 MG) TWICE DAILY. 875-125 MG Oral Tab documented as of this encounter (statuses as of 04/03/2019) Active Problems Problem Noted Date BMI 32.0-32.9,adult 05/13/2012 Overview: This patient's BMI has been calculated and is above average, and BMI management plan is completed. General patient education discussion including: obesity-related excess mortality, weight loss link to reduction of risk factors for cardiac and other diseases, importance of long-term maintenance treatment in weight loss MVP 09/28/2007 GERD 09/28/2007 Meniere's Disease 09/28/2007 Epilepsy 09/28/2007 Overview: A CHILD Abnormal pap 07/18/2005 Overview: sees Dr. Yeung in [place]. pap every 6 monthds documented as of this encounter (statuses as of 04/03/2019) Immunizations Name Administration Dates Next Due Influenza (IM) Preservative Free 01/17/2019, 12/20/2017 documented as of this encounter Social History Tobacco Use Types Packs/Day Years Used Date Former Smoker Smokeless Tobacco: Never Used Comments: quit 03/1997 Alcohol Use Drinks/Week oz/Week Comments No 0 Standard drinks or equivalent 0.0 Sex Assigned at Date Recorded Not on file Job Start Date Occupation Industry Not on file Not on file Not on file Travel History Travel Start Travel End No recent travel history available. documented as of this encounter Last Filed Vital Signs Vital Sign Reading Time Taken Comments Blood Pressure 128/86 04/02/2019 9:23 AM EST Pulse 77 04/02/2019 9:23 AM EST Temperature 36.2 04/02/2019 9:23 AM C (97.2 EST F) Respiratory Rate - - Oxygen Saturation 98% 04/02/2019 9:23 AM EST Inhaled Oxygen Concentration - - Weight 87.9 kg (193 lb 12.8 oz) 04/02/2019 9:23 AM EST Height - - Body Mass Index 35.45 04/16/2018 10:28 AM EST documented in this encounter Patient Instructions Patient InstructionsGabo Chan MD - 04/02/2019 9:20 AM ESTContinue same medicines Lab today, as listed. I'll notify you of the results with a letter. Get EKG and 24 hr heart monitor Get MRI of lumbar spine We'll decide what else to do after results are back. Some possible next steps would be to try a course of physical therapy, to refer you to a specialist for injection therapy, and/or to do more imaging of the thoracic spine, with MRIElectronically signed by Gabo Chan MD at 2019 10:19 AM EST documented in this encounter Progress Notes Gabo Chan MD - 04/02/2019 9:20 AM EST PATIENT: Patricia Santoyo : 1960 DATE OF SERVICE: 04/02/2019 CHIEF COMPLAINT: Chief Complaint Patient presents with Annual Palpitations States happening more often- everyday. Tachycardia at least once a month Groin Pain Groin pain makes bilateral hips hurts and unable to sleep at night- started over a year ago. Low Back Pain Started about a week ago. Subjective HISTORY OF PRESENT ILLNESS: Patricia Santoyo is a 58-y.o. female. HPI Has multiple somatic complaints. Pain in both hips, groins, with burning down sides of thighs. Pain up spine to base of neck. Cant lie on either side. Tingling and burning with standing long time, lying down, or even sitting. tylenol and ibuprofen help some. She had x-rays of her pelvis a year ago which were unremarkable. She has not had lumbar spine x-rays but has had multiple abdominal x-rays for kidney stones and these did not show any worrisome lumbarspine abnormalities. Getting more palpitations, skipping every day , other times races 1-2x/mo. no exertional chest pain,faintness, syncope, or CHF symptoms. Past Medical History: Diagnosis Date Abnormal pap 07/[address] Yeung in [place]. pap every 6 monthds Dysplasia of cervix sees Dr. Yeung in [place], PAP q 6 months Epilepsy 09/28/2007 A CHILD GERD 09/28/2007 HEPATIC HEMANGIOMA s/p resection Meniere's Disease 09/28/2007 MVP 09/28/2007 Postmenopausal Family History Problem Relation Age of Onset Respiratory Mother heavy smoker Cancer Father PROSTATE Diabetes Maternal Uncle Hypertension Brother Hepatitis C Brother Thyroid Child dtg with hyperthyroidism Current Outpatient Medications Medication Sig ACIPHEX 20 MG Oral Tab EC Take 20 mg by mouth TWICE DAILY. amoxicillin-clavulanic acid (AUGMENTIN 875 MG) 875-125 MG Oral Tab Take by mouth TWICE DAILY. daily vitamin Oral Tab DAILY. No current facility-administered medications for this visit. Allergies Allergen Reactions Dilantin [Phenytoin] Hives Rocephin [Ceftriaxone Sodium In Dextrose] Hives Social History Socioeconomic History Marital status: Spouse name: Not on file Number of children: Not on file Years of education: Not on file Highest education level: Not on file Occupational History Not on file Social Needs Financial resource strain: Not on file Food insecurity Worry: Not on file Inability: Not on file Transportation needs Medical: Not on file Non-medical: Not on file Tobacco Use Smoking status: Former Smoker Smokeless tobacco: Never Used Tobacco comment: quit 03/1997 Substance and Sexual Activity Alcohol use: No Alcohol/week: 0.0 standard drinks Drug use: No Sexual activity: Yes Partners: Male Lifestyle Physical activity Days per week: Not on file Minutes per session: Not on file Stress: Not on file Relationships Social connections Talks on phone: Not on file Gets together: Not on file Attends rastafarian service: Not on file Active member of club or organization: Not on file Attends meetings of clubs or organizations: Not on file Relationship status: Not on file Intimate partner violence Fear of current or ex partner: Not on file Emotionally abused: Not on file Physically abused: Not on file Forced sexual activity: Not on file Other Topics Concern Not on file Social History Narrative Not on file Over the last 2 weeks, have you been feeling down, depressed, anxious, or hopeless?: 0 Over the past 2 weeks, have you felt little interest or pleasure in doing things ?: 0 REVIEW OF SYSTEMS: Review of Systems Constitutional: Positive for malaise/fatigue. Negative for weight loss. HENT: Negative for congestion. Eyes: Negative for blurred vision. Respiratory: Negative for shortness of breath. Cardiovascular: Positive for palpitations. Negative for chest pain. Gastrointestinal: Negative for abdominal pain, constipation, diarrhea and heartburn. Genitourinary: Positive for flank pain and frequency. Negative for dysuria, hematuria and urgency. Musculoskeletal: Positive for back pain and joint pain. Skin: Negative for rash. Neurological: Negative for dizziness, seizures and loss of consciousness. Endo/Heme/Allergies: Negative for polydipsia. Psychiatric/Behavioral: Negative for depression. The patient is not nervous/ anxious. Objective PHYSICAL EXAM: VITALS: BP 128/86 | Pulse 77 | Temp 97.2 F (36.2 C) (Tympanic) | Wt 193 lb 12.8 oz (87.9kg) | LMP 11/07/2012 | SpO2 98% | BMI 35.45 kg/m Body mass index is 35.45 kg/m. Physical Exam Physical exam reveals a woman in no acute distress. Vitals as above. HEENT: Normocephalic, atraumatic. JOSÉ MIGUEL, EOMI. Mouth and ears unremarkable. Neck: No palpable lymphadenopathy in the submandibular, submental, anterior cervical, posterior cervical, or occipital chains, nor in the supraclavicular spaces. No JVD, thyromegaly. LUNGS: clear. HEART: Regular rate and rhythm. No murmurs, rubs, or gallops. ABDOMEN: positive bowel sounds, soft, nontender, no hepatosplenomegaly, masses or bruits. EXTREMITIES: no cyanosis, clubbing, or edema. Distal radial, dorsalis pedis, and posterior tibial pulses are intact. SKIN: no suspicious rashes or lesions. MUSCULOSKELETAL: no acutely inflamed joints. She is diffusely tender in her lumbar and thoracic spine to percussion, more in the lumbar. NEURO: Alert and oriented, cranial nerves II through XII grossly intact. No focal motor, sensory, or cerebellar findings. Gait and stance within normal limits. MSE: Mood not sad, affect not flat. No suicidal or homicidal ideation. No abnormality in thought process or thought content. Insight and judgement good. Well kempt. ASSESSMENT / IMPRESSION: ICD-9-CM ICD-10-CM 1. Chronic bilateral low back pain without sciaticacheck MRI. 724.2 M54.5 MR LUMBAR SPINE WO CONTRAST 338.29 G89.29 2. Gastroesophageal reflux disease without esophagitiscontinue AcipHex twice a day 530.81 K21.9 CBC WITH DIFFERENTIAL COMPREHENSIVE METABOLIC PANEL VITAMIN D 25 HYDROXY (DIXON) 3. Palpitationsrule out hyperlipidemia, thyroid disease, hypomagnesemia and perform heart monitoring looking for arrhythmia 785.1 R00.2 LIPID PROFILE THYROID STIMULATING HORMONE MAGNESIUM LEVEL HOLTER MONITOR 24-48 HOURS AMBULATORY 12 LEAD EKG (GLOBAL) 4. B12 deficiencycontinue vitamin B12 supplements 266.2 E53.8 5. BMI 35- The patient is asked to improve diet and exercise patterns to aid in medical management of this. Patient Instructions Continue same medicines Lab today, as listed. I'll notify you of the results with a letter. Get EKG and 24 hr heart monitor Get MRI of lumbar spine We'll decide what else to do after results are back. Some possible next steps would be to try a course of physical therapy, to refer you to a specialist for injection therapy, and/or to do more imaging of the thoracic spine, with MRI Author: Gabo Chan MD 04/02/2019 09:40 documented in this encounter Plan of Treatment Date Type Specialty Care Team Description 04/11/2019 Nurse/Clinical Support Internal Medicine Name Type Priority Associated Diagnoses Order Schedule MR LUMBAR SPINE WO Imaging Routine Chronic bilateral low Expected: CONTRAST back pain without 04/02/2019, Expires: sciatica 04/01/2020 HOLTER MONITOR 24-48 EKG Routine Palpitations Expected: HOURS 04/02/2019, Expires: 05/06/2020 AMBULATORY 12 LEAD EKG EKG Routine Palpitations Ordered: 04/02/2019 (GLOBAL) Health Maintenance Due Date Last Done Comments DTaP/Tdap/Td Vaccines (1 - 09/02/1970 Tdap) ZOSTER IMMUNIZATION SERIES 09/02/2009 (1 of 2) Colonoscopy 07/04/2011 07/03/2001 PAP SMEAR 03/03/2018 09/01/2017, 05/10/2012, 01/26/2009, Additional history exists MAMMOGRAM (SCREENING) 10/23/2019 10/22/2018, 09/01/2017, 11/30/2012, Additional history exists DEPRESSION SCREENING 04/02/2020 04/02/2019 DIABETES SCREENING 04/02/2020 04/02/2019, 02/16/2017, 02/16/2017, Additional history exists LIPID DISORDER SCREENING 04/02/2024 04/02/2019, 02/16/2017, 11/12/2015, Additional history exists HEPATITIS C SCREENING Completed 12/31/2013 INFLUENZA VACCINE Completed 01/17/2019, 12/20/2017 HEPATITIS A IMMUNIZATION Aged Out No longer eligible SERIES based on patient's age to complete this topic HPV IMMUNIZATION SERIES Aged Out No longer eligible based on patient's age to complete this topic MENINGOCOCCAL VACCINE IMM Aged Out No longer eligible based on patient's age to complete this topic PNEUMOCOCCAL 0-64 YRS Aged Out No longer eligible based on patient's age to complete this topic documented as of this encounter Procedures Procedure Name Priority Date/Time Associated Diagnosis Comments CBC WITH DIFFERENTIAL Routine 04/02/2019 10:47 Gastroesophageal reflux Results for this AM EST disease without procedure are in esophagitis the results section. VITAMIN D 25 HYDROXY Routine 04/02/2019 10:47 Gastroesophageal reflux Results for this (DIXON) AM EST disease without procedure are in esophagitis the results section. THYROID STIMULATING Routine 04/02/2019 10:47 Palpitations Results for this HORMONE AM EST procedure are in the results section. MAGNESIUM LEVEL Routine 04/02/2019 10:47 Palpitations Results for this AM EST procedure are in the results section. LIPID PROFILE Routine 04/02/2019 10:47 Palpitations Results for this AM EST procedure are in the results section. COMPREHENSIVE Routine 04/02/2019 10:47 Gastroesophageal reflux Results for this METABOLIC PANEL AM EST disease without procedure are in esophagitis the results section. documented in this encounter Results MAGNESIUM LEVEL (04/02/2019 10:47 AM EST) Magnesium 2.0 1.6 - 2.3 MG/DL [facility] Specimen Blood - Blood specimen (specimen) Performing Organization Address City/[facility] Phone Number [facility] [address] [place] [address] [phone] VITAMIN D 25 HYDROXY (DIXON) (04/02/2019 10:47 AM EST) Vitamin D 25 HYDROXY 25.6 (L) 32.0 - 100.0 [facility] ng/ml [facility] Specimen Blood - Blood specimen (specimen) Narrative Performed At Interpretation: [facility] <20 ng/ml Deficiency 20-<30 ng/ml Insufficiency 32-100 ng/ml Sufficiency >100 ng/ml Potential Toxicity Performing Organization Address [facility]/Zipcode Phone Number [facility] [address] [place] [address] [phone] THYROID STIMULATING HORMONE (04/02/2019 10:47 AM EST) TSH 0.89 0.47 - 4.68 uIu/ml [facility] Specimen Blood - Blood specimen (specimen) Performing Organization Address [facility] Phone Number [facility] [address] [place] [address] [phone] LIPID PROFILE (04/02/2019 10:47 AM EST) Cholesterol 188 <200 mg/dl [facility] HDL Cholesterol 54 >50 mg/dl [facility] Triglycerides 70 <150 mg/dl [facility] LDL Cholesterol 120 (H) <100 MG/DL [facility] Cholesterol / HDL Ratio 3.5 RATIO [facility] LDL / HDL Ratio 2.2 [facility] Non-HDL Cholesterol 134 (H) 0 - 130 MG/DL [facility] Patient Fasting: Yes [facility] Specimen Blood - Blood specimen (specimen) Performing Organization Address [facility] Phone Number [facility] [address] [place] [address] COMPREHENSIVE METABOLIC PANEL (04/02/2019 10:47 AM EST) Sodium 140 134 - 145 mmol/L [facility] Potassium 4.4 3.5 - 5.1 mmol/L [facility] Chloride 106 98 - 107 mmol/L [facility] CO2 27 22 - 30 mmol/L [facility] Calcium 9.4 8.3 - 10.1 mg/dl [facility] Albumin 4.2 3.5 - 5.0 g/dl [facility] BUN 16 7 - 17 mg/dl [facility] Creatinine 0.7 0.7 - 1.2 mg/dl [facility] Glucose 97 70 - 99 mg/dl [facility] Total Protein 7.9 6.3 - 8.2 g/dl [facility] Total Bilirubin 0.3 0.0 - 1.1 MG/DL [facility] AST 26 15 - 46 U/L [facility] ALT 23 9 - 52 U/L [facility] Alkaline 96 40 - 150 U/L [facility] Phosphatase [facility] eGFR >60 See Interpretation [facility] Comment: Below ml/min/1.73ml GROUP Estimated GFR Interpretation: Sq LABORATORY Above 60ml/min/1.73m2 = Normal Renal Function 30-59 ml/min/1.73m2 = Stage 3 Chronic Kidney Disease 15-29 ml/min/1.73m2 = Stage 4 Chronic Kidney Disease Less than 15 ml/min/1.73m2 = Stage 5 Chronic Kidney Disease The GFR value is calculated using the Modification of Diet in Renal Disease ( MDRD) Study Equation which can be found at: https://www.kidney.org/content/exds-obepe-snovbkln BUN/Creatinine 23 (H) 6 - 22 RATIO [facility] Anion Gap 7 3 - 11 mmol/L [facility] A/G Ratio 1.1 0.8 - 2.0 ratio [facility] Specimen Blood - Blood specimen (specimen) Performing Organization Address City/State/Zipcode Phone Number [facility] [address] [place] [address] CBC WITH DIFFERENTIAL (04/02/2019 10:47 AM EST) WBC Count 6.84 3.98 - 10.04 K/uL [facility] RBC Count 4.81 3.93 - 5.22 M/UL [facility] Hemoglobin 14.2 11.2 - 15.7 g/dL [facility] Hematocrit 44.8 34.1 - 44.9 % [facility] MCV 93.1 79.4 - 94.8 FL [facility] MCH 29.5 25.6 - 32.2 PG [facility] MCHC 31.7 (L) 32.2 - 35.5 g/dL [facility] Platelet Count 319 182 - 369 K/uL [facility] MPV 9.8 9.4 - 12.3 FL [facility] RDW 13.9 11.7 - 14.4 % [facility] Neutrophil % 64.5 34.0 - 71.1 % [facility] Lymphocyte % 27.5 19.3 - 51.7 % [facility] Monocyte % 5.8 4.7 - 12.5 % [facility] Eosinophil % 0.9 0.7 - 5.8 % [facility] Basophil % 0.6 0.1 - 1.2 % [facility] nRBC % 0.0 0.0 - 0.2 % [facility] Neutrophil # 4.41 1.56 - 6.13 K/UL [facility] Lymphocyte # 1.88 1.18 - 3.74 K/UL [facility] Monocyte # 0.40 0.24 - 0.86 K/UL [facility] Eosinophil # 0.06 0.04 - 0.36 K/UL [facility] Basophil # 0.04 0.01 - 0.08 K/UL [facility] Immature Gran % 0.7 (H) 0.0 - 0.4 % [facility] Immature Gran # 0.05 (H) 0.00 - 0.03 K/uL [facility] NRBC # 0.00 0.00 - 0.12 K/uL [facility] Specimen Blood - Blood specimen (specimen) Performing Organization Address City/State/[facility] Phone Number [facility] [address] [place] [address] [phone] documented in this encounter Visit Diagnoses Diagnosis Chronic bilateral low back pain without sciatica Gastroesophageal reflux disease without esophagitis Esophageal reflux Palpitations B12 deficiency Other B-complex deficiencies documented in this encounter Insurance Payer Benefit Plan / Subscriber ID Effective Dates Phone Address Type Group [facility] xxxxxxxxxxxx 2018-Present Blue Cross/Blue Shield Guarantor Name Account Type Relation to Date of Phone Billing Patient Address Patricia Santoyo Personal/Family 1960 [address] (Home) [place], [place] [phone] (Work) documented as of this encounter"
[2019-04-22 18:38] VITALS: BP 139/73
--- NOTE | 2019-04-22 18:52 | UC ---
Throat Pain/Nasal Jignesh HPI - HPI Summary HPI Summary: 58-year-old woman comes in with a chief complaint of sinusitis symptoms for 2 weeks. She has yellow and green rhinorrhea. She has left maxillary sinus pressure. Also has some chest congestion and postnasal drip. She has been using Flonase and saline nasal spray without any relief. She did have sinusitis and early March and was treated successfully with Augmentin for 10 days. She was symptom free for about a week and then they started up again. No known history of nasal polyps. She reports the last couple of years she's been getting increasing numbers of sinus infections. - History of Current Complaint Chief Complaint: UCGeneralIllness Stated Complaint: SINUS COMPLAINT Time Seen by Provider: 04/22/19 18:28 Hx Last Menstrual Period: n/a Pain Intensity: 6 - Allergies/Home Medications Allergies/Adverse Reactions: Allergies Allergy/AdvReac Type Severity Reaction Status Date / Time chlorhexidine Allergy Intermediate Swelling Verified 04/22/19 18:39 [From Hibiclens] ceftriaxone [From Rocephin] Allergy Hives Verified 04/22/19 18:39 phenytoin Allergy Hives Verified 04/22/19 18:39 Home Medications: Home Medications Ibuprofen TAB* [Motrin TAB* 400 MG] 400 mg PO Q6H PRN 04/22/19 [History Confirmed 04/22/19] PMH/Surg Hx/FS Hx/Imm Hx Previously Healthy: Yes GI/ History: Gastroesophageal Reflux Other History Of: Negative For: Anticoagulant Therapy - Surgical History Surgical History: Yes Surgery Procedure, Year, and Place: LIVER RESECTION 70% FOR A HEMANGIOMA with gall bladder removal 2000. C section 1986. left hand surgery 1997. LITHOTRIPSY. LEFT URETERAL STENT INSERTION X 2- SHAUN-2017. 2 ADDITIONAL SX FOR KIDNEY INFECTIONS--2017 - Family History Known Family History: Positive: Hypertension - Social History Alcohol Use: None Substance Use Type: None Smoking Status (MU): Light Every Day Tobacco Smoker Type: Cigarettes Amount Used/How Often: 1/2 PPD Length of Time of Smoking/Using Tobacco: 2 YEARS AGO Have You Smoked in the Last Year: Yes When Did the Patient Quit Smoking/Using Tobacco: 20 YRS AGO Household Exposure Type: Cigarettes - Immunization History Most Recent Influenza Vaccination: NO Most Recent Pneumonia Vaccination: refused Review of Systems All Other Systems Reviewed And Are Negative: Yes Constitutional: Positive: Other - SEE HPI Skin: Positive: Negative Eyes: Positive: Negative ENT: Positive: Sore Throat, Ear Ache, Nasal Discharge, Sinus Congestion, Sinus Pain/Tenderness Respiratory: Positive: Cough Cardiovascular: Positive: Negative Gastrointestinal: Positive: Negative Motor: Positive: Negative Neurovascular: Positive: Negative Musculoskeletal: Positive: Negative Neurological: Positive: Negative Psychological: Positive: Negative Is Patient Immunocompromised?: No Physical Exam Triage Information Reviewed: Yes Appearance: No Pain Distress, Well-Nourished, Ill-Appearing - MILD Vital Signs: Initial Vital Signs Temp 99.9 F 04/22/19 18:33 Pulse 74 04/22/19 18:33 Resp 18 04/22/19 18:33 BP 139/73 04/22/19 18:33 Pulse Ox 99 04/22/19 18:33 Vital Signs Reviewed: Yes Eye Exam: Normal Eyes: Positive: Conjunctiva Clear ENT: Positive: Pharyngeal erythema, Nasal congestion, Nasal drainage, TMs normal , Sinus tenderness Neck: Positive: Supple Respiratory: Positive: Lungs clear, Normal breath sounds, No respiratory distress Cardiovascular: Positive: RRR Musculoskeletal: Positive: Strength Intact, ROM Intact Neurological: Positive: Alert, Muscle Tone Normal Psychological: Positive: Age Appropriate Behavior Skin Exam: Normal Throat Pain/Nasal Course/Dx - Differential Dx/Diagnosis Provider Diagnosis: Sinusitis Discharge ED - Sign-Out/Discharge Documenting (check all that apply): Patient Departure All imaging exams completed and their final reports reviewed: No Studies - Discharge Plan Condition: Stable Disposition: HOME Prescriptions: Amoxicillin/Clavulanate TAB* [Augmentin TAB 875*] 875 mg PO BID #20 tab Patient Education Materials: Sinusitis (ED) Referrals: Gabo Chan MD [Primary Care Provider] - Atul Lockhart MD [Medical Doctor] - Pankaj Leiva MD [Medical Doctor] - Additional Instructions: FOLLOW UP WITH YOUR DOCTOR OR ENT IF NOT COMPLETELY IMPROVED. GET REEVALUATED SOONER IF NOT IMPROVING OR WORSE OR ANY QUESTIONS OR CONCERNS. - Billing Disposition and Condition Condition: STABLE Disposition: Home
== END 2019-04-22 19:01 | disposition home or self-care (01) ==
LOC: UCCORT 15:02
DX: J32.9 Chronic sinusitis, unspecified (principal); F17.210 Nicotine dependence, cigarettes, uncomplicated; Z88.8 Allergy status to other drugs, medicaments and biological substances; Z88.1 Allergy status to other antibiotic agents
CPT/HCPCS: 99212; G0463